=== PATIENT | female | born 1960 | race Caucasian/White ===

== ENCOUNTER 2018-04-21 13:17 | Emergency (ER) | payer BC, SELFPAY ==
[2018-04-21 13:22] VITALS: BP 115/67; PULSE 85; RESP 16; TEMP 36.7; O2SAT 98
--- NOTE | 2018-04-21 14:37 | ED.GENADUL ---
Disposition Clinical Impression: Cold sore Disposition: HOME Condition: Good Instructions: Oral Herpes Simplex Virus Infections (ED) Additional Instructions: For your cold sore you may use Abreva zqzb-jik-ejnaoew topical treatments just take as directed on packaging. You may also use qjmm-cff-yruvdym Tylenol Motrin as needed. If not improving over the next week please follow-up with your primary care provider for reassessment. Referrals: King Gooden, [Primary Care Provider] - 1 week (If not improving over the next week please follow-up with your primary care provider for reassessment.) Medical Decision Making - Medical Decision Making Patient presenting to the emergency department for sore to her left lower lip. Sores consistent with herpes simplex virus. Patient has no oral mucosal involvement no other systemic symptoms. Patient encouraged to use kyje-tgs-ocajoda treatment and to follow-up with her primary care provider if not improving over the next week given that she has already had symptoms for 12 days. After discussion of diagnosis and plan of care with patient patient agreed and stated no further needs, questions, or concerns at this time. History of Present Illness - General Chief complaint: RashLesion Stated complaint: UNKNOWN Time Seen by Provider: 04/21/18 13:44 Source: patient, RN notes reviewed Mode of arrival: ambulatory Limitations: no limitations - History of Present Illness Initial comments: Patient reports approximately 12 days ago she noticed some sores to her left lower lip. She denies that they have spread or traveled anywhere else but they have been burning and aching with sometimes throbbing. She states that she used a couple qlkc-dko-wobubvj ointments/lotions but have not helped her symptoms. Patient denies any fever chills, other rash lesions or bumps on her body or within her mouth. Denies any swollen lymph nodes. Onset/Timin -: days(s) Location: mouth Severity scale (1-10): 3 Quality: burning Consistency: constant Improves with: none Worsens with: none Associated Symptoms: denies other symptoms Treatments Prior to Arrival: other (Ksau-gai-rjwnasf ointments and lotions) - Related Data Unknown [No Known Home Meds] 10/22/17 Unknown [No Known Home Meds] 04/21/18 Allergies Allergy/AdvReac Type Severity Reaction Status Date / Time phenazopyridine Allergy Intermediate HIVES Unverified 10/22/17 11:19 [Phenazopyridine] sulfamerazine [Sulfamerazine] Allergy Intermediate HIVES Unverified 10/22/17 11:19 norfloxacin Allergy Unknown unknown Unverified 10/22/17 11:19 peanut AdvReac Unverified 10/22/17 11:19 pork derived (porcine) AdvReac Unverified 10/22/17 11:19 Review of Systems Constitutional: denies: chills, fever ENT: as per HPI. denies: ear pain, throat pain Respiratory: denies: cough Gastrointestinal: denies: abdominal pain Musculoskeletal: denies: joint swelling Skin: as per HPI, rash Past Medical History - Past Medical History Medical history: no medical history Surgical history: non-contributory - Social History Smoking status: never smoker Alcohol use: none Drug use: none Living Situation: lives with family General Exam - General Limitations: no limitations General appearance: alert, in no apparent distress - Head Head exam: Present: atraumatic - ENT ENT exam: Present: normal orophraynx, mucous membranes moist, other (Patient does have on left lower lip mildly erythematous lesion that is slightly papular and approximately 3 mm in diameter with 2 small vesicles to the medial aspect.) - Neck Neck exam: Present: normal inspection - Respiratory Respiratory exam: Absent: respiratory distress, wheezes, stridor - Neurological Exam Neurological exam: Present: alert, oriented X3. Absent: altered Course Vital Signs - 24 hr 04/21/18 13:22 Temperature 36.7 C Pulse 85 Respiratory 16 Rate Blood Pressure 115/67 Pulse Oximetry 98
--- NOTE | 2018-04-21 14:40 | ED.GENADUL_ITS ---
Disposition Clinical Impression: Cold sore Disposition: HOME Condition: Good Instructions: Oral Herpes Simplex Virus Infections (ED) Additional Instructions: For your cold sore you may use Abreva kuvk-mfm-vfydcrm topical treatments just take as directed on packaging. You may also use nhcq-vvs-xihrbvc Tylenol Motrin as needed. If not improving over the next week please follow-up with your primary care provider for reassessment. Referrals: King Gooden, [Primary Care Provider] - 1 week (If not improving over the next week please follow-up with your primary care provider for reassessment. ) Medical Decision Making - Medical Decision Making Patient presenting to the emergency department for sore to her left lower lip. Sores consistent with herpes simplex virus. Patient has no oral mucosal involvement no other systemic symptoms. Patient encouraged to use over-the- counter treatment and to follow-up with her primary care provider if not improving over the next week given that she has already had symptoms for 12 days. After discussion of diagnosis and plan of care with patient patient agreed and stated no further needs, questions, or concerns at this time. History of Present Illness - General Chief complaint: RashLesion Stated complaint: UNKNOWN Time Seen by Provider: 04/21/18 13:44 Source: patient, RN notes reviewed Mode of arrival: ambulatory Limitations: no limitations - History of Present Illness Initial comments: Patient reports approximately 12 days ago she noticed some sores to her left lower lip. She denies that they have spread or traveled anywhere else but they have been burning and aching with sometimes throbbing. She states that she used a couple xziq-jlp-abnlffm ointments/lotions but have not helped her symptoms. Patient denies any fever chills, other rash lesions or bumps on her body or within her mouth. Denies any swollen lymph nodes. Onset/Timin -: days(s) Location: mouth Severity scale (1-10): 3 Quality: burning Consistency: constant Improves with: none Worsens with: none Associated Symptoms: denies other symptoms Treatments Prior to Arrival: other (Zqud-sab-jvgpdub ointments and lotions) - Related Data Unknown [No Known Home Meds] 10/22/17 Unknown [No Known Home Meds] 04/21/18 Allergies Allergy/AdvReac Type Severity Reaction Status Date / Time phenazopyridine Allergy Intermediate HIVES Unverified 10/22/17 11:19 [Phenazopyridine] sulfamerazine [Sulfamerazine] Allergy Intermediate HIVES Unverified 10/22/17 11: 19 norfloxacin Allergy Unknown unknown Unverified 10/22/17 11:19 peanut AdvReac Unverified 10/22/17 11:19 pork derived (porcine) AdvReac Unverified 10/22/17 11:19 Review of Systems Constitutional: denies: chills, fever ENT: as per HPI. denies: ear pain, throat pain Respiratory: denies: cough Gastrointestinal: denies: abdominal pain Musculoskeletal: denies: joint swelling Skin: as per HPI, rash Past Medical History - Past Medical History Medical history: no medical history Surgical history: non-contributory - Social History Smoking status: never smoker Alcohol use: none Drug use: none Living Situation: lives with family General Exam - General Limitations: no limitations General appearance: alert, in no apparent distress - Head Head exam: Present: atraumatic - ENT ENT exam: Present: normal orophraynx, mucous membranes moist, other (Patient does have on left lower lip mildly erythematous lesion that is slightly papular and approximately 3 mm in diameter with 2 small vesicles to the medial aspect.) - Neck Neck exam: Present: normal inspection - Respiratory Respiratory exam: Absent: respiratory distress, wheezes, stridor - Neurological Exam Neurological exam: Present: alert, oriented X3. Absent: altered Course Vital Signs - 24 hr 04/21/18 13:22 Temperature 36.7 C Pulse 85 Respiratory 16 Rate Blood Pressure 115/67 Pulse Oximetry 98
== END 2018-04-21 14:46 | disposition home or self-care (01) ==
PROVIDERS: Emergency Provider Physician Assistant; PCP Emergency Medicine
DX: B00.89 Other herpesviral infection (principal)
CPT/HCPCS: 99282

== ENCOUNTER 2018-06-10 02:03 | Outpatient (CLI) | payer BC, SELFPAY ==
[2018-06-10 11:43] LABS: Anion Gap 7.1 mmol/L (3-11); BUN 17 mg/dL (7-18); CO2 28.9 mmol/L (21.0-32.0); CREATININE 0.66 mg/dL (0.55-1.02); Calcium 8.8 mg/dL (8.5-10.1); Chloride 103 mmol/L (98-107); Cholesterol 219 mg/dL (50-200); Glucose 98 mg/dL (70-100); HDL Cholesterol 55 mg/dL (40-60); LDL CHOLESTEROL 139 mg/dL (<100); Potassium 4.3 mmol/L (3.5-5.1); Sodium 139 mmol/L (136-145); Triglyceride 176 mg/dL (30-150)
== END 2018-06-10 02:23 ==
PROVIDERS: PCP Nurse Practitioner Family; Visit Provider Nurse Practitioner Family
DX: Z00.00 Encounter for general adult medical examination without abnormal findings (principal); E78.5 Hyperlipidemia, unspecified
CPT/HCPCS: 80048; 80061; 83721

== ENCOUNTER 2018-07-28 00:48 | Outpatient (CLI) | payer BC, SELFPAY ==
--- NOTE | 2018-07-28 09:29 | DI.COMBO_ITS ---
SYMPTOM/DIAGNOSIS: LUMP OF RIGHT BREAST N63.10, MAMMOGRAM: Views of the mammogram obtained for questioned palpable abnormality of the right breast laterally. There is a 6 mm in diameter laterally located, fairly well-circumscribed but not entirely well-defined intramammary mass. Please see accompanying ultrasound report. ULTRASOUND RIGHT BREAST: There is a 3.5 x 4.0 x 3.0 mm area of nodularity with a somewhat indistinct margin. Given the appearance of this lesion on the mammograms and the ultrasound characteristics the possibility of a small malignancy would certainly have to be considered. Further assessment with a biopsy is recommended Category 4, breast density category C. Dr. Caicedo was informed. [facility] ASSESSMENT OF FINDINGS: Suspicious. Biopsy should be considered. Category 4. Patient will receive a letter notifying them of these results. Bi-RADS category C. The breasts are heterogeneously dense, which may obscure small masses.
== END 2018-07-28 01:08 ==
PROVIDERS: PCP Nurse Practitioner Family; Visit Provider Nurse Practitioner Family
DX: N63.10 Unspecified lump in the right breast, unspecified quadrant (principal); R92.8 Other abnormal and inconclusive findings on diagnostic imaging of breast
CPT/HCPCS: 76642; 77061; 77065; G0279

== ENCOUNTER 2019-05-03 08:56 | Outpatient (CLI) | payer BC, SELFPAY ==
[2019-05-03 11:04] LABS: ALT 25 U/L (14-59); AST 16 U/L (15-37); Albumin 4.2 g/dL (3.4-5.0); Alkaline Phosphatase 130 U/L (46-116); Anion Gap 10.1 mmol/L (3-11); BUN 19 mg/dL (7-18); Bilirubin, Total 0.3 mg/dL (0.2-1.0); CO2 28.9 mmol/L (21.0-32.0); CREATININE 0.82 mg/dL (0.55-1.02); Calcium 9.4 mg/dL (8.5-10.1); Calculated LDL 170 mg/dL; Chloride 103 mmol/L (98-107); Cholesterol 254 mg/dL (50-200); Glucose 100 mg/dL (70-100); HDL Cholesterol 60 mg/dL (40-60); Potassium 4.5 mmol/L (3.5-5.1); Sodium 142 mmol/L (136-145); Total Protein 7.7 g/dL (6.4-8.2); Triglyceride 122 mg/dL (30-150)
[2019-05-03 14:02] LABS: FREE T4 0.83 ng/dL (0.76-1.46); TSH 1.92 uIU/mL (0.36-3.74)
== END 2019-05-03 09:16 ==
PROVIDERS: PCP Nurse Practitioner Family; Visit Provider Nurse Practitioner Family
DX: R00.2 Palpitations (principal); E78.5 Hyperlipidemia, unspecified
CPT/HCPCS: 36415; 80053; 80061; 83721; 83036; 83735; 84439; 84443

== ENCOUNTER 2019-05-12 02:00 | Outpatient (CLI) | payer BC, SELFPAY ==
--- NOTE | 2019-05-17 09:38 | HOLTER_ITS ---
DATE OF DICTATION: May 17, 2019 STUDY INDICATION: Palpitations. REQUESTING PROVIDER: Not available. FINDINGS: The patient was monitored for 1 day and 22 hours. Average heart rate 84 bpm, range 51 to 139 bpm. 0.1% PVC's, no VT. 11 PAC's. One 5-beat atrial run, maximum heart rate of 131 bpm. No pauses greater than 3 seconds. No high degree heart block. Five patient events. One event correlated with PVC's. All other events did not correlate with arrhythmias. FINAL INTERPRETATION: Rare ventricular and supraventricular ectopy, at times symptomatic.
== END 2019-05-12 02:20 ==
PROVIDERS: PCP Nurse Practitioner Family; Visit Provider Nurse Practitioner Family
DX: R00.2 Palpitations (principal); I49.1 Atrial premature depolarization; I49.3 Ventricular premature depolarization
CPT/HCPCS: 93225

== ENCOUNTER 2019-05-14 09:19 | Outpatient (CLI) | payer BC, SELFPAY | END 2019-05-14 09:39 | PROVIDERS: PCP Nurse Practitioner Family; Visit Provider Nurse Practitioner Family | DX: R00.2 Palpitations (principal); I49.1 Atrial premature depolarization; I49.3 Ventricular premature depolarization | CPT/HCPCS: 93226 ==

== ENCOUNTER 2019-06-09 01:13 | Outpatient (CLI) | payer MEDICAID, SELFPAY ==
--- NOTE | 2019-06-09 08:32 | DI.RAD_ITS ---
EXAM: RF BARIUM SWALLOW UGI CLINICAL HISTORY: swallowing difficulty and burning in the esophagus, GERD, K21.9 TECHNIQUE: 2D and realtime digital imaging was performed. CONTRAST MATERIAL: Oral water soluble contrast was administered. COMPARISON: No exams were available for comparison FINDINGS: Initial plain film of the chest reveals normal stool and air pattern. No abnormal calcifications are seen. Esophagus: The esophagus is patent with no evidence for erosions, fold thickening, strictures, or ma sses. With regards to the motility, there is a normal primary stripping wave. No tertiary contraction s were noted. There is a small hiatal hernia. There was mild gastroesophageal reflux present. Stomach and proximal duodenum: No erosions, fold thickening, strictures, or masses are identified. T here is no evidence of gastric outlet obstruction. IMPRESSION: Small hiatal hernia. Mild gastroesophageal reflux. FLUORO TIME: 28 seconds
[2019-06-09] MEDS: Barium Sulfate 60% W/V 355 ML BTL 160 ML PO (09:58)
== END 2019-06-09 01:33 ==
PROVIDERS: PCP Nurse Practitioner Family
DX: K21.9 Gastro-esophageal reflux disease without esophagitis (principal); R13.10 Dysphagia, unspecified; K44.9 Diaphragmatic hernia without obstruction or gangrene
CPT/HCPCS: 74220; 74247; J3490

== ENCOUNTER 2019-06-30 07:00 | Outpatient (CLI) | payer MEDICAID, SELFPAY ==
[2019-06-30 11:24] LABS: HCT 41.1 % (36.0-46.0); HGB 14.2 g/dL (12.0-15.5); Mean Corp. HGB Concentration 34.5 g/dL (32.0-36.0); Mean Corpuscular Volume 83.9 fL (80-95); Platelet Count 260 x1000/uL (130-400); RBC Distribution Width 12.1 % (11.7-14.6); White Blood Cell Count 6.24 k/cumm (4.4-10.8)
[2019-06-30 11:58] LABS: ALT 25 U/L (14-59); AST 14 U/L (15-37); Albumin 4.1 g/dL (3.4-5.0); Alkaline Phosphatase 128 U/L (46-116); Anion Gap 10.2 mmol/L (3-11); BUN 15 mg/dL (7-18); Bilirubin, Total 0.3 mg/dL (0.2-1.0); C-Reactive Protein 0.39 mg/dL (0.0-0.3); CO2 27.8 mmol/L (21.0-32.0); CREATININE 0.63 mg/dL (0.55-1.02); Calcium 9.3 mg/dL (8.5-10.1); Chloride 103 mmol/L (98-107); Glucose 90 mg/dL (70-100); Potassium 4.3 mmol/L (3.5-5.1); Sodium 141 mmol/L (136-145); Total Protein 7.4 g/dL (6.4-8.2)
[2019-06-30 12:39] LABS: ESR 10 mm/hr (0-30)
[2019-06-30 14:16] LABS: GGT 27 U/L (5-55)
[2019-07-01 11:47] LABS: Lyme Ab w Rflx to Lyme Confirm Negative
[2019-07-01 12:09] LABS: Cyclic Citrullinated Peptide <2.5 U/mL (<5.0)
== END 2019-06-30 07:20 ==
PROVIDERS: PCP Nurse Practitioner Family; Visit Provider Emergency Medicine
DX: M25.50 Pain in unspecified joint (principal); R89.9 Unspecified abnormal finding in specimens from other organs, systems and tissues
CPT/HCPCS: 36415; 80053; 85027; 85652; 86200; 82977; 86140; 86618

== ENCOUNTER 2019-08-18 01:02 | Outpatient (CLI) | payer MEDICAID, SELFPAY ==
--- NOTE | 2019-08-18 15:21 | DI.CT_ITS ---
EXAM: CT CHEST W CLINICAL HISTORY: NECK/CHEST PAIN R13.10 DYSPHAGIA TECHNIQUE: Post IV contrast COMPARISON: RF BARIUM SWALLOW UGI from 06/09/2019 FINDINGS: Heart size is normal. The aorta and pulmonary arteries are normal in diameter. There is mild calcifi cation at the aortic arch. There are no pleural or pericardial effusions or evidence of adenopathy. N o esophageal wall thickening is visible. Stomach is not abnormally distended. Minimal linear atelecta sis or scarring at the lingula. No infiltrates or pulmonary nodules are seen. The trachea and bronchi are unremarkable. There are no significant bony abnormalities. The visualized portions of the upper abdomen are unremarkable. IMPRESSION: No acute abnormality.
--- NOTE | 2019-08-18 15:22 | DI.CT_ITS ---
EXAM: CT NECK W CLINICAL HISTORY: DYSPHAGIA R13.10 TECHNIQUE: Post IV contrast COMPARISON: No exams were available for comparison FINDINGS: Scoliosis is noted in the cervical spine. There are degenerative disc changes at C6. The parotid, submandibular and thyroid glands appear normal. The visualized portions of the sinuses and mastoid a ir cells appear clear. There is no vascular occlusion or significant stenosis. There is no airway n arrowing. The adenoids and tonsils are not enlarged. IMPRESSION: No acute abnormality.
[2019-08-18] MEDS: Omnipaque 350 MG/ML 100 ML BTL IJ (16:00)
== END 2019-08-18 01:22 ==
PROVIDERS: PCP Nurse Practitioner Family; Visit Provider Emergency Medicine
DX: R13.10 Dysphagia, unspecified (principal); M41.22 Other idiopathic scoliosis, cervical region; M50.322 Other cervical disc degeneration at C5-C6 level; M54.2 Cervicalgia
CPT/HCPCS: 70491; 71260; J3490

== ENCOUNTER 2020-09-04 10:26 | Emergency (ER) | payer MEDICAID, SELFPAY ==
[2020-09-04 10:51] VITALS: BP 120/74; PULSE 101; RESP 20; TEMP 36.8; O2SAT 98
--- NOTE | 2020-09-04 11:24 | W.ED.GENAD ---
Discharge Plan Disposition Patient Disposition: HOME Condition: Stable Discharge Details Clinical Impression: Cough Primary Care Provider: Tere Chacon ED Provider: Fabiola Oswald Home Meds and New Rx's Prescriptions: No Action No Known Home Meds RF: 0 Discharge Instructions Instructions: Acute Cough (ED), Instructions for Self Monitoring Oxygen Saturation Additional Instructions: Please return immediately to the emergency department if you develop any new or worsening symptoms, if your condition does not improve as expected, or if you become otherwise concerned. It is extremely important that you call soon as possible to make an appointment to be seen in follow-up for this visit by your primary care doctor. Stand Alone Forms: PENDING COVID-19 TESTING Referrals: Tere Chacon NP [Primary Care Provider] - Discharge Data Discharge Date/Time-TO BE ENTERED AT DEPARTURE: 09/04/20 12:39 Medical Decision Making Jennifer Nguyen is a 60-year-old woman who presented to the emergency department with cough, generalized body aches, headache after traveling to [place] visiting her son who then tested positive for Covid. On exam patient is well and nontoxic-appearing. O2 sat on room air is 98%. Patient is no other tachycardic as compared to heart rate 101 in triage. Symptoms consistent with Covid versus other viral pneumonia versus bacterial pneumonia (less likely) versus other. Exam/history at this time is not consistent with meningitis, sepsis, acute coronary syndrome, pulmonary embolism. Plan for Covid swab, flu swab, chest x-ray. Chest x-ray negative for acute process, flu swab negative, Covid test is pending as send out to [facility]. I have a strong suspicion for Covid positivity in this patient based on her clinical presentation and history, which I discussed with her. I discussed that she should isolate at home until she has been symptom-free for at least 72 hours. Patient was given pulse oximeter with teaching for use and instructions to return should oxygen saturation drop below 90%. I had a lengthy discussion with Patient regarding return to emergency department precautions, home care, and importance of outpatient follow-up. Pt verbalizes understanding of the plan and is amenable. Patient discharged to home with clear plan for outpatient follow-up. All questions were answered. Patient is not a candidate for monoclonal antibody infusion at this time given institutional policy. Disposition decision was made weighing the risks and benefits of hospitalization versus outpatient treatment, the risk for further decompensation, and the patient's wishes. Medical Records Medical records reviewed: Yes I reviewed the patient's medical records. Imaging Data Radiologic Study: Attestation: I personally reviewed and interpreted this imaging study as follows: Radiologist's impression: EXAM: XR PORTABLE CHEST AP CLINICAL HISTORY: Cough, PUI. TECHNIQUE: 2D digital imaging was performed. COMPARISON: CR,RF RF BARIUM SWALLOW UGI from 06/09/2019 FINDINGS: Heart size is normal. The mediastinum is not widened. Lungs are clear with no infiltrates nor pleural effusions. No pulmonary edema. Incidentally noted is calcification in the aortic arch in this 60-year-old patient. IMPRESSION: No acute pulmonary findings. The aortic arch is calcified in this 60-year-old patient indicating atherosclerotic involvement. Heart size is normal. Lab Data Lab results reviewed: Yes I reviewed the patient's lab results. HPI General Mode of arrival: ambulatory. Date/Time Provider Initiated Documentation: 09/04/20 10:28. Limitations to Documentation: no limitations. Information obtained by: patient, RN notes reviewed and old records reviewed. HPI Narrative: Jennifer Nguyen is a 60-year-old woman with a history of hyperlipidemia presenting to the emergency department with cough, body aches. Patient reports that she traveled to [place] with her to visit her son 08/31. Patient's son then tested positive for Covid 09/01, and she and her returned to [place] that day. Patient reports that yesterday she developed dry cough, headache, and generalized body aches. She is unsure whether she has had fever. She denies shortness of breath, vomiting, diarrhea, numbness, weakness, rash. Patient reports that she has been eating and drinking as usual. She reports that she came to the emergency department because she coughed all night, which was uncomfortable for her. Patient's is also being seen in the emergency department concurrently for similar symptoms. Patient reports headache as mild to moderate, gradual onset, not the worst of her life. Related Data Home Medications Medication Instructions Recorded Confirmed Unknown [No Known Home Meds] 09/04/20 09/14/20 Allergies Allergy/AdvReac Type Severity Reaction Status Date / Time phenazopyridine Allergy Intermediate HIVES Verified 09/14/20 08:35 [Phenazopyridine] sulfamerazine [Sulfamerazine] Allergy Intermediate HIVES Verified 09/14/20 08:35 norfloxacin Allergy Unknown unknown Verified 09/14/20 08:35 peanut AdvReac Verified 09/14/20 08:35 pork derived (porcine) AdvReac Verified 09/14/20 08:35 General Stated Complaint: RespSymp SETH: 4 Review of Systems Narrative: Constitutional: denies fevers Eyes: denies eye pain ENT: denies ear pain, dental pain, sore throat Cardiovascular: denies chest pain, edema Respiratory: denies SOB, reports cough GI: denies abdominal pain, vomiting, diarrhea : denies flank pain MSK: denies back pain, neck pain,, reports generalized arthralgias/myalgias Skin: denies rash Neuro: denies numbness, weakness, reports headache [facility] Medical History (Updated 09/14/20 @ 11:00 by Prabhjot Clifton MD) Ductal carcinoma in situ (DCIS) of right breast (~2002) DCIS, high grade, grade 3 comedo type, ER/AR positive in summer 2002 s/p lumpectomy, radiation and 5yrs of tamoxifen at [facility] GERD (gastroesophageal reflux disease) Hyperlipidemia Prediabetes Surgical History Hx of section (~1980) S/P abdominoplasty S/P cataract surgery (~2012) S/P lumpectomy, right breast (~2002) S/P nasal septoplasty (05/11/14) S/P STACIE-BSO (total abdominal hysterectomy and bilateral salpingo-oophorectomy) (~1991) Family History Mother No problems noted. Father Hypertension Sister No problems noted. Sister Type 2 diabetes mellitus Colon cancer Sister No problems noted. Brother Hypertension Brother Substance abuse Alcohol abuse Son Crohns disease Daughter Crohns disease Maternal Grandfather No problems noted. Maternal Grandmother Heart disease Paternal Grandfather No problems noted. Paternal Grandmother No problems noted. Social History Smoking/Tobacco Use Status: Never Smoking risk assessment performed?: Yes Alcohol Intake: never Drug use: Never Substance use type: does not use Do you feel safe in your relationship?: Yes Female Reproductive History Menstrual Menopause type: surgical History History 2 Para 2 Hx # Term Pregnancies Multiple births Hx # Pregnancies Ectopic pregnancies AB induced Hx Number of Living Children 2 AB spontaneous Exam Narrative Exam Narrative: Constitutional: well and [id number]-czvxbtbbg, pleasant, conversing normally HENT: head atraumatic/normocephalic/normal inspection, mucous membranes moist Eyes: conjunctiva normal, sclera normal, pupils 3mm b/l Neck: no stridor, normal painless ROM, trachea midline, supple, no meningismus Chest: normal inspection Resp: normal work of breathing, LCTAB Cardio: normal rate, normal rhythm, no murmur appreciated Back: normal inspection, no rash Skin: warm, dry, normal color, no rash Neuro: alert, not altered, grossly non-focal, normal tone Ext: no edema, no posterior calf tenderness to palpation Psych: normal mood, normal affect, normal behavior Course Vital Signs Vital signs: Vital Signs Temperature 36.8 C 09/04/20 10:51 Pulse 101 H 09/04/20 10:51 Respiratory Rate 20 09/04/20 10:51 Blood Pressure 120/74 09/04/20 10:51 Pulse Oximetry 98 09/04/20 10:51 Temperature 36.8 C 09/04/20 10:51 Temperature Source Skin 09/04/20 10:51 Pulse 101 H 09/04/20 10:51 Respiratory Rate 20 09/04/20 10:51 Respiratory Effort Non-Labored 09/04/20 10:55 Respiratory Depth Normal 09/04/20 10:55 Blood Pressure 120/74 09/04/20 10:51 Blood Pressure Position Sitting 09/04/20 10:51 Pulse Oximetry 98 09/04/20 10:51 Oxygen Delivery Method Room Air 09/04/20 10:51 Oxygen Flow Rate 0 09/04/20 10:51 Pain Level 7 09/04/20 10:51 Comment 09/04/20 10:51 Lab/Test Results Lab/Test Results: 09/04/20 11:16 Nasopharynx Influenza Types A,B Antigen - Pending
--- NOTE | 2020-09-04 11:46 | DI.RAD_ITS ---
EXAM: XR PORTABLE CHEST AP CLINICAL HISTORY: Cough, PUI. TECHNIQUE: 2D digital imaging was performed. COMPARISON: CR,RF RF BARIUM SWALLOW UGI from 06/09/2019 FINDINGS: Heart size is normal. The mediastinum is not widened. Lungs are clear with no infiltrates nor pleur al effusions. No pulmonary edema. Incidentally noted is calcification in the aortic arch in this 60 -year-old patient. IMPRESSION: No acute pulmonary findings. The aortic arch is calcified in this 60-year-old patient indicating ath erosclerotic involvement. Heart size is normal. DATA REPOSITORY: RADIATION DOSE DELIVERED:
[2020-09-04 12:38] VITALS: PULSE 74; O2SAT 98
[2020-09-05 14:21] LABS: COVID-19 RT-PCR UVMMC Result Positive (Negative)
--- NOTE | 2020-09-05 14:52 | NUR.NOTE ---
Nursing Note: Pt called via telephone and notified of positive covid-19 results and negative flu results. Pt and had questions regarding medications that could be prescribed for them for their positive covid result- advised to speak with primary care physician.
== END 2020-09-04 12:39 | disposition home or self-care (01) ==
PROVIDERS: Emergency Provider Student in an Organized Health Care Education/Training Program; PCP Nurse Practitioner Family
DX: U07.1 COVID-19 (principal); R05 Cough; M79.10 Myalgia, unspecified site; R51.9 Headache, unspecified
CPT/HCPCS: 87449; 99283; U0003; 71045

== ENCOUNTER 2020-09-06 09:36 | Outpatient (CLI) | payer MEDICAID, SELFPAY ==
[2020-09-06 12:29] VITALS: BP 111/74; PULSE 79; RESP 16; TEMP 37.4; O2SAT 97
[2020-09-06] MEDS: Normal Saline 500 ML 30 ML IV (12:35)
[2020-09-06] MEDS: Normal Saline Flush 10 ML SYR IVP (12:36)
[2020-09-06 12:53] VITALS: BP 126/80; PULSE 74; RESP 18; TEMP 36.8; O2SAT 95
[2020-09-06 13:26] VITALS: BP 116/78; PULSE 68; RESP 16; TEMP 36.8; O2SAT 95
[2020-09-06 13:54] VITALS: BP 122/75; PULSE 64; RESP 16; TEMP 36.7; O2SAT 94
[2020-09-06 14:24] VITALS: BP 124/75; PULSE 61; RESP 16; TEMP 36.6; O2SAT 97
[2020-09-06 14:45] VITALS: BP 125/84; PULSE 64; RESP 16; TEMP 36.6; O2SAT 96
== END 2020-09-06 09:56 ==
PROVIDERS: PCP Nurse Practitioner Family; Visit Provider Family Medicine
DX: U07.1 COVID-19 (principal)
CPT/HCPCS: 96365

== ENCOUNTER 2020-09-14 08:23 | Emergency (ER) | payer MEDICAID, SELFPAY ==
[2020-09-14] VITALS (31 sets, daily range): BP systolic 91–144; BP diastolic 69–95; PULSE 80–119; RESP 14–20; TEMP 36.6; O2SAT 97–100
--- NOTE | 2020-09-14 08:45 | RT.EKG_ITS ---
APPROVED REPORT Exam: Resting ECG Patient Location: E HR:100 bpm ECG Measurements Heart Rate 100 AXIS MI 136 P 78 QRSd 82 QRS 85 QT 343 T 55 QTc 444 Conclusion Sinus tachycardia.. Probable left atrial enlargement.
--- NOTE | 2020-09-14 09:00 | W.ED.GENAD ---
Discharge Plan Disposition Patient Disposition: HOME Condition: Improving Discharge Details Chief Complaint: RespSymp Clinical Impression: COVID-19 Primary Care Provider: Tere Chacno ED Provider: Prabhjot Clifton Home Meds and New Rx's Prescriptions: No Action No Known Home Meds RF: 0 Discharge Instructions Instructions: Viral Syndrome (ED) Additional Instructions: May continue once daily home monitoring of oxygen. Remember that extremities should be warmed prior to measurement. Do not except the first number that appears on the screen that continue to observe for readings over 30 to 60 seconds. Return to the emergency department if your resting oxygenation drops below 90% on separate measurements 10 minutes apart. Tylenol and/or ibuprofen as needed for pain, aches, fever. Small, frequent sips of fluids so that you maintain good hydration. Return to the ER for any acute concern. Please follow-up with your regular doctor if not improved in 5 to 7 days time. Medical Decision Making 60-year-old female presents from home with her . They developed Covid symptoms and had a positive COVID-19 test September 04. They were given home oxygen monitoring and patient's oxygen has been within normal limits, her has diminished. They both present for evaluation today. She complains primarily of mild conjunctivitis and headache with poor appetite. The patient received Bamlanivimab infusion last week. Patient's vital signs are unremarkable, she is anxious with a pulse approximately 105. She is oxygenating 97% on room air and her lungs are clear to auscultation. Patient given a fluid bolus, Tylenol and Toradol, screening labs including lactic acid obtained and repeat chest x-ray ordered. White blood cell count is 8, hematocrit 45, platelets 284. Chemistries unremarkable, note of glucose 203, normal LFTs. Lactic acid 2.4. Chest x-ray: No acute disease Following 2 L normal saline and parenteral analgesic/antipyretic. Patient's lactate improved to 1.3. She felt subjectively improved and better. We will discharged home, she may continue to monitor home oxygen with the previously dispensed oximeter. Discussed with her home management and indications to return for reevaluation. Lab Data Lab results reviewed: Yes I reviewed the patient's lab results. Labs: Laboratory Results - last 24 hr 09/14/20 09/14/20 09/14/20 08:55 08:55 08:55 WBC 8.58 RBC 5.26 H Hgb 15.2 Hct 45.0 MCV 85.6 MCH 28.9 MCHC 33.8 RDW 11.6 L Plt Count 284 MPV 10.2 Immature Gran % 0.6 Neutrophils % 78.1 Lymphocytes % 15.9 Monocytes % 5.0 Eosinophils % 0.1 Basophils % 0.3 Nucleated RBC % 0 Absolute Neutrophils 6.70 Absolute Lymphocytes 1.36 Absolute Monocytes 0.43 Absolute Eosinophils 0.01 Absolute Basophils 0.03 VBG Lactate 2.4 H* Sodium 137 Potassium 4.0 Chloride 101 Carbon Dioxide 26.5 Anion Gap 9.5 BUN 12 Creatinine 0.88 Estimated GFR/1.73 m2 >= 60.00 Glucose 203 H Calcium 9.2 Total Bilirubin 0.4 AST 20 ALT 44 Alkaline Phosphatase 125 H Total Protein 8.1 Albumin 4.2 HPI General Mode of arrival: ambulatory. Date/Time Provider Initiated Documentation: 09/14/20 08:25. Limitations to Documentation: no limitations. Information obtained by: patient. History of Present Illness 60 year old F presents to the emergency department with the chief complaint of Thighs hurt, cough, headache. Last Tylenol 2 days ago. +PO, described as moderate, Quality is described as dull and constant, and is localized to the head. Patient started experiencing this day(s) and it has been intermittent. No relieving factors improve symptom(s), No exacerbating factors reported . Patient notes cough, headaches, loss of appetite, malaise and weakness; denies nausea/vomiting and shortness of breath. Patient did receive the following treatments prior to arrival, none Related Data Home Medications Medication Instructions Recorded Confirmed Unknown [No Known Home Meds] 09/04/20 09/14/20 Allergies Allergy/AdvReac Type Severity Reaction Status Date / Time phenazopyridine Allergy Intermediate HIVES Verified 09/14/20 08:35 [Phenazopyridine] sulfamerazine [Sulfamerazine] Allergy Intermediate HIVES Verified 09/14/20 08:35 norfloxacin Allergy Unknown unknown Verified 09/14/20 08:35 peanut AdvReac Verified 09/14/20 08:35 pork derived (porcine) AdvReac Verified 09/14/20 08:35 General Stated Complaint: RespSymp SETH: 4 Review of Systems Narrative: Decreased appetite. Able to eat and drink. No significant shortness of breath. Mild cough. Complains of mild burning of eyes and headache. Last Tylenol was 2 days ago. Her is positive with Covid as well. 8 systems reviewed and otherwise negative. [facility] Medical History (Updated 09/14/20 @ 11:00 by Prabhjot Clifton MD) Ductal carcinoma in situ (DCIS) of right breast (~2002) DCIS, high grade, grade 3 comedo type, ER/CT positive in summer 2002 s/p lumpectomy, radiation and 5yrs of tamoxifen at [facility] GERD (gastroesophageal reflux disease) Hyperlipidemia Prediabetes Surgical History Hx of section (~1980) S/P abdominoplasty S/P cataract surgery (~2012) S/P lumpectomy, right breast (~2002) S/P nasal septoplasty (05/11/14) S/P STACIE-BSO (total abdominal hysterectomy and bilateral salpingo-oophorectomy) (~1991) Family History Mother No problems noted. Father Hypertension Sister No problems noted. Sister Type 2 diabetes mellitus Colon cancer Sister No problems noted. Brother Hypertension Brother Substance abuse Alcohol abuse Son Crohns disease Daughter Crohns disease Maternal Grandfather No problems noted. Maternal Grandmother Heart disease Paternal Grandfather No problems noted. Paternal Grandmother No problems noted. Social History Smoking/Tobacco Use Status: Never Smoking risk assessment performed?: Yes Alcohol Intake: never Drug use: Never Substance use type: does not use Do you feel safe in your relationship?: Yes Female Reproductive History Menstrual Menopause type: surgical History History 2 Para 2 Hx # Term Pregnancies Multiple births Hx # Pregnancies Ectopic pregnancies AB induced Hx Number of Living Children 2 AB spontaneous Exam Narrative Exam Narrative: GEN: awake, alert, oriented 3. Pleasant, well groomed, interactive. HEAD: Normocephalic, atraumatic ENT: Mucous membranes moist, oropharynx unremarkable, External ear exam unremarkable EYES: PERRL, EOMI, mild conjunctival injection bilaterally NECK: Full ROM, no SOLE, no menigismus CHEST/RESP: Nontender, clear to auscultation bilateral, no wheeze/rhonchi/rales CARDIOVASCULAR: Borderline sinus tachycardia with a rate approximately 100, no murmur, rub grant. 2+ Rad pulse bilateral ABDOMEN: Soft, nontender, no mass. +Bowel sounds EXT: Full ROM, no edema, no rash Neuro: Grossly normal neurologic exam, conversant, interactive. Psych: Speech fluent, thoughts congruent, affect anxious Course Vital Signs Vital signs: Vital Signs Temperature 36.6 C 09/14/20 08:31 Pulse 119 H 09/14/20 08:31 Respiratory Rate 20 09/14/20 08:31 Blood Pressure 119/71 09/14/20 08:31 Pulse Oximetry 97 09/14/20 08:31 Temperature 36.6 C 09/14/20 08:31 Temperature Source Skin 09/14/20 08:31 Pulse 119 H 09/14/20 08:31 Respiratory Rate 20 09/14/20 08:31 Respiratory Effort Non-Labored 09/14/20 08:35 Blood Pressure 119/71 09/14/20 08:31 Blood Pressure Position Sitting 09/14/20 08:31 Pulse Oximetry 97 09/14/20 08:31 Oxygen Delivery Method Room Air 09/14/20 08:31 Oxygen Flow Rate 0 09/14/20 08:31 Pain Level 4 09/14/20 08:31
[2020-09-14 09:08] LABS: Abs Immature Grans 0.05 10^3/uL (0.0-0.06); Absolute Basophil Count 0.03 10^3/uL (0.0-0.2); Absolute Eosinophil Count 0.01 10^3/uL (0.0-0.7); Absolute Lymphocyte Count 1.36 10^3/uL (1.2-3.4); Absolute Monocyte Count 0.43 10^3/uL (0.1-0.8); Basophils % 0.3; Eosinophils % 0.1; HGB 15.2 g/dL (11.2-15.7); Immature Grans % 0.6; Lymphocytes % 15.9; MCH 28.9 pg (27.0-33.0); MCHC 33.8 % (32.0-36.0); MCV 85.6 fL (80-95); MPV 10.2 fL (8.0-11.0); Neutrophils % 78.1; Nucleated RBC 0 %; Platelet Count 284 10^3/uL (130-400); RBC 5.26 10^6/uL (3.93-5.22); RDW 11.6 % (11.7-14.6); RDW-SD 36.3 fL; WBC 8.58 10^3/uL (4.4-10.8)
[2020-09-14] MEDS: Normal Saline 1,000 ML 1000 ML IV ×2 (09:09→09:22)
[2020-09-14] MEDS: Acetaminophen 500 MG TAB 1000 MG PO (09:09)
[2020-09-14] MEDS: Ketorolac 15 MG/ML VIAL IVP (09:09)
[2020-09-14 09:11] LABS: Lactate 2.4 mmol/L (0.6-1.4)
[2020-09-14 09:33] LABS: ALT 44 U/L (14-59); AST 20 U/L (15-37); Albumin 4.2 g/dL (3.4-5.0); Alkaline Phosphatase 125 U/L (46-116); Anion Gap 9.5 mmol/L (3-11); BUN 12 mg/dL (7-18); Bilirubin, Total 0.4 mg/dL (0.2-1.0); CO2 26.5 mmol/L (21.0-32.0); CREATININE 0.88 mg/dL (0.55-1.02); Calcium 9.2 mg/dL (8.5-10.1); Chloride 101 mmol/L (98-107); Glucose 203 mg/dL (74-106); Sodium 137 mmol/L (136-145); Total Protein 8.1 g/dL (6.4-8.2)
--- NOTE | 2020-09-14 09:59 | DI.RAD_ITS ---
EXAM: XR PORTABLE CHEST AP CLINICAL HISTORY: Cough, + covid. TECHNIQUE: 2D digital imaging was performed. COMPARISON: CR XR PORTABLE CHEST AP from 09/04/2020 FINDINGS: Heart size is normal. The mediastinum is not widened. Lungs are clear. No infiltrates nor obvious pleural effusions. Chest leads noted. IMPRESSION: No acute pulmonary findings on this single AP portable view of the chest. DATA REPOSITORY: RADIATION DOSE DELIVERED:
[2020-09-14 10:54] LABS: Lactate 1.3 mmol/L (0.6-1.4)
== END 2020-09-14 11:30 | disposition home or self-care (01) ==
PROVIDERS: Emergency Provider Emergency Medicine; PCP Nurse Practitioner Family
DX: U07.1 COVID-19 (principal); R05 Cough; R51.9 Headache, unspecified; R63.0 Anorexia
CPT/HCPCS: 36415; 80053; 93005; 96361; 96374; 99285; 71045; 83605; 85025; 93010; J1885

== ENCOUNTER 2021-06-11 03:36 | Outpatient (CLI) | payer MEDICAID, SELFPAY ==
[2021-06-11 13:21] LABS: Anion Gap 7.7 mmol/L (3-11); BUN 13 mg/dL (7-18); CO2 30.3 mmol/L (21.0-32.0); CREATININE 0.9 mg/dL (0.55-1.02); Calcium 9.5 mg/dL (8.5-10.1); Calculated LDL 172 mg/dL (<100); Chloride 104 mmol/L (98-107); Cholesterol 247 mg/dL (<200); Glucose 108 mg/dL (74-106); HDL Cholesterol 58 mg/dL (40-60); Potassium 4.2 mmol/L (3.5-5.1); Sodium 142 mmol/L (136-145); Triglyceride 88 mg/dL (<150)
[2021-06-11 13:22] LABS: Hemoglobin A1C 5.9 % (<5.7)
== END 2021-06-11 03:37 | disposition home or self-care (01) ==
PROVIDERS: PCP Nurse Practitioner Family; Visit Provider Nurse Practitioner Family
DX: R73.03 Prediabetes (principal)
CPT/HCPCS: 36415; 80048; 80061; 83036

== ENCOUNTER 2021-07-25 02:09 | Outpatient (CLI) | payer MEDICAID, SELFPAY ==
[2021-07-25 13:19] LABS: ALT 29 U/L (14-59); AST 14 U/L (15-37); Albumin 4.2 g/dL (3.4-5.0); Alkaline Phosphatase 123 U/L (46-116); Anion Gap 7.7 mmol/L (3-11); BUN 15 mg/dL (7-18); Bilirubin, Total 0.5 mg/dL (0.2-1.0); CO2 31.3 mmol/L (21.0-32.0); CREATININE 0.8 mg/dL (0.55-1.02); Calcium 9.4 mg/dL (8.5-10.1); Chloride 106 mmol/L (98-107); Glucose 105 mg/dL (74-106); Potassium 4.6 mmol/L (3.5-5.1); Sodium 145 mmol/L (136-145); TSH (W/Ref FT4) 1.26 uIU/mL (0.36-3.74); Total Protein 7.2 g/dL (6.4-8.2)
== END 2021-07-25 02:10 | disposition home or self-care (01) ==
LOC: LOS 02:10
PROVIDERS: PCP Nurse Practitioner Family; Visit Provider Nurse Practitioner Family
DX: F41.1 Generalized anxiety disorder (principal)
CPT/HCPCS: 36415; 80053; 84443

== ENCOUNTER 2021-08-08 00:31 | Outpatient (CLI) | payer MEDICAID, SELFPAY ==
--- NOTE | 2021-08-08 08:00 | DI.US_ITS ---
Exam(s) US SOFT TISSUE HEAD OR NECK EXAM: US SOFT TISSUE HEAD OR NECK CLINICAL HISTORY: foreign body sensation in throat, scan ant neck, r09.89. TECHNIQUE: Ultrasound was performed using standard protocol. COMPARISON: No exams were available for comparison FINDINGS: Sonographic assessment utilizing grayscale and color Doppler imaging was performed and targeted to th e area of clinical concern. There is a 0.6 cm cyst in the left lobe of the thyroid gland. This appears to correspond to the mariella ent's palpable abnormality. The soft tissues in the neck are otherwise unremarkable. Normal lymph n odes are visualized. IMPRESSION: 0.6 cm cyst in the left thyroid gland which appears to correspond to the palpable abnormality. The t hyroid gland was incompletely imaged on this examination. If there is further concern for thyroid di sease, a thyroid ultrasound may be obtained. DATA REPOSITORY:
== END 2021-08-08 00:51 ==
PROVIDERS: PCP Nurse Practitioner Family; Visit Provider Nurse Practitioner Family
DX: R09.89 Other specified symptoms and signs involving the circulatory and respiratory systems (principal); R93.89 Abnormal findings on diagnostic imaging of other specified body structures
CPT/HCPCS: 76536

== ENCOUNTER 2021-08-14 00:34 | Outpatient (CLI) | payer MEDICAID, SELFPAY ==
--- NOTE | 2021-08-14 07:30 | DI.US_ITS ---
Exam(s) US THYROID EXAM: US THYROID CLINICAL HISTORY: Thyroid cyst on neck US,E04.1. TECHNIQUE: Ultrasound thyroid performed using standard protocol. COMPARISON: US US SOFT TISSUE HEAD OR NECK from 08/08/2021 FINDINGS: ISTHMUS: 3 mm RIGHT LOBE: Size: 4.9 x 1.7 x 1.5 cm Echogenicity: Normal. Vascularity: Normal. Nodules: There is a mixed cystic and solid nodule in the midpole measuring 0.7 cm maximally. It is h ypoechoic with punctate echogenic foci. It is consistent with a TIRADS level 4 nodule. Due to its s ize, no follow-up is recommended. LEFT LOBE: Size: 5.1 x 1.3 x 1.4 cm Echogenicity: Normal. Vascularity: Normal. Nodules: There is a 0.7 cm cyst in the midpole. No follow-up is recommended. OTHER FINDINGS: None. IMPRESSION: 0.7 cm cyst in the midpole of the left thyroid gland. DATA REPOSITORY:
== END 2021-08-14 00:54 ==
PROVIDERS: PCP Nurse Practitioner Family; Visit Provider Nurse Practitioner Family
DX: E04.1 Nontoxic single thyroid nodule (principal)
CPT/HCPCS: 76536

== ENCOUNTER 2021-08-20 03:42 | Outpatient (CLI) | payer MEDICAID, SELFPAY ==
[2021-08-20 10:16] LABS: Source Nasal/Nares
[2021-08-20 12:30] LABS: COVID-19 PCR Negative (Negative)
== END 2021-08-20 03:43 | disposition home or self-care (01) ==
PROVIDERS: PCP Nurse Practitioner Family; Visit Provider Surgery
DX: Z20.822 Contact with and (suspected) exposure to COVID-19 (principal); Z01.818 Encounter for other preprocedural examination
CPT/HCPCS: 87635

== ENCOUNTER 2021-08-22 08:14 | Day surgery (SDC) | payer MEDICAID, SELFPAY ==
--- NOTE | 2021-08-22 06:33 | W.COLOREPORT ---
Colonoscopy Report Date of procedure: 08/22/21 Pre-op diagnosis general: Diarrhea Post-op diagnosis procedure note: same Procedure: Colonoscopy with biopsies Surgeon: Maia Bocanegra Anesthesia Type: General:No Airway (Bishop Akhtar CRNA) Estimated blood loss (mL): 3 Pathology: other (Randome biopsies throughout the colon and terminal ileum) Complications: None Disposition: same day Indications: Mrs Nguyen is a pleasant 61-year-old female with a history of diarrhea now for the last 5 to 6 months. She has lost some weight. Over the last few weeks the diarrhea has slowed down and she is now having 2 bowel movements a day which are very soft but not liquid anymore. She denies any melena or hematochezia. She does have a family history of Crohn's and her son and daughter as well as a family history of colon cancer in her sister. Her last colonoscopy was in 2012 and was normal. Due to her weight loss and family history I do feel it is appropriate to do a colonoscopy. Differential includes inflammatory bowel disease, post viral diarrhea and less likely colon cancer. Risks, benefits and complications of the procedure were reviewed with her as well as the prep and she wished to proceed. Risks, benefits and complications have been reviewed. Complications include but are not limited to bleeding, pain, perforation, missed small lesion/polyp, sore throat, aspiration and adverse reaction to the medications. Questions were entertained and answered to their satisfaction and they wished to proceed. No guarantees were given or implied. Proceed with colonoscopy under sedation Prep: Miralax/Dulcolax Procedure Start Time: 09:36 Procedure End Time: 09:54 Retraction Time: 9 minutes Findings: NOrmal looking intestine Procedure Description: After informed consent was obtained the patient was taken to the procedure room and placed in a left decubitous position. Monitors were applied and a time out was done. The patients name, date of , procedure, allergies to medications and metal in their body was reviewed. The patient was then sedated. Once sedated and comfortable a rectal exam was done. External exam was normal. Internal exam revealed a normal sphincter tone and no palpable masses. The scope was then introduced and retro-flexed. No internal hemorrhoids, polyps or masses were identified on retro-flexion. The scope was then advanced to the cecum without difficulty. The ileocecal vlave and appendiceal orifice were identified. The prep was good. The scope was then slowly retracted over 9 minutes back into the rectum. There were no polyps. There was no diverticulosis noted. Randome biopsies of the terminal ileum and colon were done to rule out microscopic colitis. The scope was removed and the patient was woken up and taken back to Same day surgery in stable condition. The patient tolerated the procedure well and there were no immediate complications. Follow up: The patient should follow up in 10 years unless they develop changes in bowel habits or other new gastrointestinal complaints.
--- NOTE | 2021-08-22 06:34 | W.PM.DSUDISC ---
Discharge Plan Disposition Patient Disposition: HOME Condition: Good Discharge Details Reason For Visit: Colonoscopy Attending Provider: Maia Bocanegra Primary Care Provider: Tere Chacon Home Meds and New Rx's Prescriptions: Continued gabapentin 300 mg capsule 300 mg PO QHS RF: 0 calcium carbonate [Tums] 300 mg (750 mg) tablet,chewable 300 mg PO DAILY RF: 0 omeprazole 20 mg capsule,delayed release(DR/EC) 20 mg PO DAILY Qty: 90 RF: 0 calcium carbonate [Tums] 200 mg calcium (500 mg) Tablet,Chewable 200 mg PO BID RF: 0 Discontinued bisacodyl [Dulcolax (bisacodyl)] 5 mg tablet,delayed release (DR/EC) 5 mg PO ONCE Qty: 4 RF: 0 polyethylene glycol 3350 17 gram/dose powder 17 g PO ONCE Qty: 238 RF: 0 Discharge Instructions Additional Instructions: Findings: Normal appearing intestine Follow up: 10 years Please call if you develop: fevers >101.5 Nausea or Vomiting Abdominal pain that is not transient Rectal bleeding that is more then a tbsp A hard abdomen and inability to pass gas DAY SURGERY UNIT POST ENDOSCOPY INSTRUCTIONS Instructions for everyone who is given Anesthesia: For your safety, please do the following for the next 24 Hours: a. Do not drive or operate dangerous equipment b. Do not drink alcohol beverages or use any recreational drugs for the first 24 hours or while taking pain medications. The medications in your body may have a reaction that can be dangerous. c. Do not make any important decisions or sign any important papers 1. Generally there are no restrictions on your activity after a day or so has gone by, but you may feel a bit fatigued for a few days. 2. After you arrive home you may have a light meal and return to a normal diet as you can tolerate it without feeling sick to your stomach. 3. After surgery, you may feel pain or discomfort. This should be only transient, but if it persists please contact your doctor. 4. If there are any questions regarding the findings of your procedure, please feel free to contact your doctor. 6. If you are unable to contact your doctor with a problem, contact the hospital at [phone]. 7. Continue all your regular medications unless directed otherwise. I understand the above instructions and have no questions. Signature of Patient or Responsible Adult Escort Date/Time Name of Responsible Adult Escort Signature of Nurse Date/Time Activity:: Activity as Tolerated Diet:: As Tolerated Discharge Orders Discharge Orders: Discharge Order (Routine); Ordered 08/22/21 Ordered By: Maia Bocanegra
[2021-08-22 08:20] VITALS: BP 118/75; PULSE 89; RESP 18; TEMP 36.9; O2SAT 97
[2021-08-22] MEDS: Lactated Ringers 1,000 ML 80 ML IV (08:46)
--- NOTE | 2021-08-22 08:53 | W.ANESPRE ---
General Info Date of Service Date Performed: 08/22/21 Height: 5 ft 5 in Weight: 66.4 kg Body Mass Index (BMI): 24.3 Surgical Procedure: Operation Date: 08/22/21 09:50 Proposed Procedures Side Surgeon p Colonoscopy Maia Bocanegra MD Meds Allergies and Home Medications Allergies Allergy/AdvReac Type Severity Reaction Status Date / Time phenazopyridine Allergy Intermediate HIVES Verified 08/22/21 07:38 [Phenazopyridine] sulfamerazine [Sulfamerazine] Allergy Intermediate HIVES Verified 08/22/21 07:38 norfloxacin Allergy Unknown unknown Verified 08/22/21 07:38 peanut AdvReac Verified 08/22/21 07:38 pork derived (porcine) AdvReac Verified 08/22/21 07:38 Home Medication Medication Instructions Recorded bisacodyl 5 mg tablet,delayed 5 mg PO ONCE #4 tab 08/14/21 release polyethylene glycol 3350 17 17 g PO ONCE #238 g 08/14/21 gram/dose oral powder calcium carbonate 300 mg (750 mg) 300 mg PO DAILY 08/20/21 chewable tablet gabapentin 300 mg capsule 300 mg PO QHS 08/20/21 omeprazole 20 mg capsule,delayed 20 mg PO DAILY #90 cap 08/20/21 release calcium carbonate [Tums] 200 mg PO BID 08/22/21 Current Visit Medications: Current Medications Generic Name Dose Route Start Last Admin Trade Name Freq PRN Reason Stop Dose Admin Hyoscyamine Sulfate 0.125 mg 08/22/21 06:35 Hyoscyamine 0.125 Mg Sl/Oral/Chew SL DIRECTED PRN Ringer's Solution 1,000 mls @ 80 mls/hr 08/22/21 06:00 08/22/21 08:46 IV 09/20/21 23:59 80 mls/hr INFUSION ALVA Administration IV Miscellaneous Supplies 1 each 08/22/21 06:00 Iv Access IV 09/20/21 23:59 DIRECTED ALVA Ondansetron HCl 4 mg 08/22/21 06:35 Ondansetron 4 Mg/2 Ml Vial IVP Q4H PRN PRN Nausea / Vomiting Sodium Chloride 0 ml 08/22/21 06:00 Normal Saline Flush 10 Ml Syr IV 09/20/21 23:59 PRN PRN Sodium Chloride 0 ml 08/22/21 06:00 Normal Saline 10 Ml Vial IJ 09/20/21 23:59 DIRECTED PRN Sterile Water 0 ml 08/22/21 06:00 Water,Injection,Sterile 10 Ml Vial IJ 09/20/21 23:59 DIRECTED PRN PFSH Active Problems Active Problems: Problem Status Onset Code GERD (gastroesophageal reflux disease) K21.9 Prediabetes R73.03 Generalized anxiety disorder F41.1 Hyperlipidemia E78.5 Diarrhea R19.7 History of right breast cancer ~2002 Z85.3 Medical History Medical History COVID-19 (~08/2020) 08/2020-nasal congestion, cough 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) DCIS, high grade, grade 3 comedo type, ER/VA positive in summer 2002 s/p lumpectomy, radiation and 5yrs of tamoxifen at [facility] Generalized anxiety disorder GERD (gastroesophageal reflux disease) Hyperlipidemia Prediabetes Surgical History Surgical History Hx of section (~1980) S/P abdominoplasty S/P cataract surgery (~2012) S/P lumpectomy, right breast (~2002) S/P nasal septoplasty (05/11/14) S/P STACIE-BSO (total abdominal hysterectomy and bilateral salpingo-oophorectomy) (~1991) Tobacco Smoking/Tobacco Use Status: Never Passive smoking exposure: No Second hand exposure: No Alcohol Alcohol Intake: current Alcohol type: wine Substance Use Substance use: Never Substance use type: does not use Prental History History 2 Para 2 Hx # Term Pregnancies Multiple births Hx # Pregnancies Ectopic pregnancies AB induced Hx Number of Living Children 2 AB spontaneous Vital Signs and Lab Results Vital Signs Most Recent Vital Signs in EMR: Most Recent Vital Signs Temp Pulse Resp BP Pulse Ox 36.9 C 89 18 118/75 97 08/22/21 08:20 08/22/21 08:20 08/22/21 08:20 08/22/21 08:20 08/22/21 08:20 Lab Results Blood Type / Crossmatch: No Data to Display Complete Blood Count: No Data to Display Complete Metabolic Panel: Sodium Level 145 mmol/L (136-145) 07/25/21 09:07 07/25/21 Potassium Level 4.6 mmol/L (3.5-5.1) 07/25/21 09:07 07/25/21 Chloride Level 106 mmol/L (98-107) 07/25/21 09:07 07/25/21 Carbon Dioxide Level 31.3 mmol/L (21.0-32.0) 07/25/21 09:07 07/25/21 Blood Urea Nitrogen 15 mg/dL (7-18) 07/25/21 09:07 07/25/21 Creatinine 0.8 mg/dL (0.55-1.02) 07/25/21 09:07 07/25/21 Estimated GFR/1.73 m2 >= 60.00 (mL/min/1.73m2) 07/25/21 09:07 07/25/21 Calcium Level 9.4 mg/dL (8.5-10.1) 07/25/21 09:07 07/25/21 Albumin 4.2 g/dL (3.4-5.0) 07/25/21 09:07 07/25/21 Glucose Level 105 mg/dL (74-106) 07/25/21 09:07 07/25/21 Liver Function Panel: Alanine Aminotransferase (ALT/SGPT) 29 U/L (14-59) 07/25/21 09:07 07/25/21 Aspartate Amino Transf (AST/SGOT) 14 U/L (15-37) L 07/25/21 09:07 07/25/21 Coagulation Panel: No Data to Display Cardiac Panel: No Data to Display Arterial Blood Gas: No Data to Display Venous Blood Gas: No Data to Display Pancreas Panel: No Data to Display Thyroid Panel: Thyroid Stimulating Hormone (TSH) 1.26 uIU/mL (0.36-3.74) 07/25/21 09:07 07/25/21 Infectious Disease: Coronavirus (COVID-19)(PCR) Negative (Negative) 08/20/21 09:31 08/20/21 Coronavirus 2019 Source Nasal/Nares 08/20/21 09:31 08/20/21 Blood Cultures: No Data to Display Toxicology Panel: No Data to Display Anesthesia Assessment and Plan Anesthesia History Personal History: No History of Anesthesia Complications Family History: No Family History of Anesthesia Complications Exercise Tolerance Exercise Tolerance: Metabolic Equivalents>4 Pertinent Negatives Pertinent Negatives: No Symptoms of GERD Cardiac & Pulmonary Exam Cardiac Exam: Normal S1/S2 Heart Sounds Pulmonary Exam: Clear Bilateral Breath Sounds Implantable Cardiac Device Does patient have a Pacemaker or an ICD?: No Airway Exam Known Difficult Airway: No Mallampati Class: 1 Mouth Opening: Normal (> 3cm) Thyromental Distance: Greater than 3 cm Neck Range of Motion: Full ROM Neck Circumference: Normal Teeth Condition: Normal Dentition ASA Classification ASA Score: ASA 2 Emergency Case?: No NPO Status NPO Status: NPO Clears >2 hours, Solids >8 hours Anesthesia Plan Resuscitation Status: Full Code Anesthesia Technique: General Anesthesia Airway Planned: Natural Airway Monitors Used: Standard Monitors
[2021-08-22 08:55] VITALS: BMI 24.3
--- NOTE | 2021-08-22 09:43 | BOWEL_PTH ---
PATIENT: Jennifer Nguyen LOC: [facility] U#:[id number] AGE/SX: 61/F ROOM: RE08/22/[address]: Maia Bocanegra MD : [id number] BED: DIS: 08/22/2021 SPEC #: [id number] RECD: 08/22/21 13:02 STATUS: BROWN CHAPPELL #: [id number] ANNETTA: 08/22/21 09:[address]: Maia Bocanegra DEPT: Surgical Specimen RECD BY: Roseline Verduzco ENTERED: 08/22/21 13:03 SP TYPE: Bowel OTHR DR: Tere Chacon, JONH Tissues: 1 - BIOPSY BOWEL 2 - BIOPSY BOWEL 3 - BIOPSY BOWEL 4 - BIOPSY BOWEL 5 - BIOPSY BOWEL Procedures: GROSS AND MICRO LEVEL 4 Comments: [id number]
[2021-08-22 09:58] VITALS: BP 119/77; PULSE 80; RESP 16; TEMP 36.8; O2SAT 98
--- NOTE | 2021-08-22 10:10 | W.ANESPOSTOP ---
Postoperative Evaluation Date, Time and Location Date Performed: 08/22/21 Time Performed: 10:10 Patient Location: Day Surgery Unit Vital Signs Most Recent Imported Vital Signs: Most Recent Vital Signs Temp Pulse Resp BP Pulse Ox 36.8 C 80 16 119/77 98 08/22/21 09:58 08/22/21 09:58 08/22/21 09:58 08/22/21 09:58 08/22/21 09:58 Pain Score Most Recent Pain Score: Most Recent Pain Score Pain Level 0 08/22/21 09:58 Assessment Mental Status: Awake (Alert & Oriented to Patient Baseline) Airway and Respiratory Function: Patent airway with normal (patient baseline) respiratory exam Cardiovascular Function: Hemodynamically Stable Hydration Status: Adequately Hydrated Nausea & Vomiting: No Nausea or Vomiting Pain: Pt. Denies Any Pain Peripheral Nerve Block: Patient did not receive a nerve block
== END 2021-08-22 11:00 | disposition home or self-care (01) ==
LOC: SUR 08:15
PROVIDERS: PCP Nurse Practitioner Family; Visit Provider Surgery
PROC: 0DJD8ZZ Inspection of Lower Intestinal Tract, Via Natural or Artificial Opening Endoscopic (ICD-10-PCS; CPT 45378; principal; 2021-08-22 09:45)
DX: R19.7 Diarrhea, unspecified (principal); R73.03 Prediabetes; K21.9 Gastro-esophageal reflux disease without esophagitis; F41.1 Generalized anxiety disorder
CPT/HCPCS: 45380; 88305

== ENCOUNTER 2022-04-22 17:08 | Outpatient (REF) | payer MEDICAID, SELFPAY ==
[2022-04-24 11:18] LABS: COVID-19 RT-PCR UVMMC Result Negative (Negative)
== END 2022-04-22 17:09 | disposition home or self-care (01) ==
LOC: LBN 17:08
PROVIDERS: PCP Nurse Practitioner Family; Visit Provider Physician Assistant
DX: J02.9 Acute pharyngitis, unspecified (principal); Z20.822 Contact with and (suspected) exposure to COVID-19
CPT/HCPCS: U0003; 87070

== ENCOUNTER 2022-05-31 17:13 | Emergency (ER) | payer MEDICAID, SELFPAY ==
[2022-05-31 17:29] VITALS: BP 138/79; PULSE 98; RESP 18; TEMP 36.9; O2SAT 98
--- NOTE | 2022-05-31 17:44 | W.ED.GENAD ---
Discharge Plan Disposition Patient Disposition: HOME Condition: Improving Discharge Details Clinical Impression: Acute viral syndrome Primary Care Provider: Tere Chacon ED Provider: Prabhjot Clifton Home Meds and New Rx's Prescriptions: Continued gabapentin 300 mg capsule 300 mg PO QHS Discharge Instructions Instructions: Viral Syndrome (ED) Additional Instructions: Home to rest this evening. We will call you with your influenza and COVID test results. Tylenol and ibuprofen as needed for aches, pains or fever. Small, frequent sips of fluids to maintain hydration. Discharge Data Discharge Date/Time-TO BE ENTERED AT DEPARTURE: 05/31/22 18:17 Medical Decision Making 62-year-old female, states she has had COVID twice. Presents with 2 days of fever, cough, malaise, body ache after sick contact with a grandchild who had a similar illness. She reports a negative home COVID test. She arrives to the ER with unremarkable vital signs and is generally speaking well-appearing. Patient given acetaminophen, COVID and flu testing obtained. She requested discharged home and I will call her with the results (RSV, influenza, SARS-CoV-2 negative). HPI General Mode of arrival: ambulatory. Date/Time Provider Initiated Documentation: 05/31/22 17:22. Limitations to Documentation: no limitations. Information obtained by: patient. History of Present Illness 62 year old F presents to the emergency department with the chief complaint of 2 days of sore throat, cough, headache, body ache, described as moderate and similar to prior episodes, and is localized to the head, chest, upper extremity and lower extremity. Patient started experiencing this day(s) and it has been constant. No relieving factors improve symptom(s), No exacerbating factors reported . Patient notes cough, fever/chills and headaches; denies chest pain, nausea/vomiting and shortness of breath. Patient did receive the following treatments prior to arrival, none Related Data Home Medications Medication Instructions Recorded Confirmed gabapentin 300 mg capsule 300 mg PO QHS 08/20/21 05/31/22 Allergies Allergy/AdvReac Type Severity Reaction Status Date / Time phenazopyridine Allergy Intermediate HIVES Verified 05/31/22 17:33 [Phenazopyridine] sulfamerazine [Sulfamerazine] Allergy Intermediate HIVES Verified 05/31/22 17:33 norfloxacin Allergy Unknown unknown Verified 05/31/22 17:33 peanut AdvReac Verified 05/31/22 17:33 pork derived (porcine) AdvReac Verified 05/31/22 17:33 General Stated Complaint: GenMedical SETH: 4 Review of Systems Narrative: Sick contact with grandchild. See HPI. 7 systems were reviewed [facility] All Active Problems (Updated 05/31/22 @ 17:47 by Prabhjot Clifton MD) Acute viral syndrome (Acute) Plantar fasciitis (Acute) GERD (gastroesophageal reflux disease) (Chronic) Prediabetes (Chronic) Generalized anxiety disorder (Chronic) Hyperlipidemia (Chronic) Diarrhea (Chronic) Negative colonoscopy 2020 History of right breast cancer (Chronic ~2002) DCIS, high grade, grade 3 comedo type, [place] positive in summer 2002 s/p lumpectomy, radiation and 5yrs of tamoxifen at [facility] Medical History COVID-19 (~08/2020) 08/2020-nasal congestion, cough 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 Father Hypertension Sister No problems noted. Sister Type 2 diabetes mellitus Colon cancer Sister No problems noted. Brother Hypertension Brother Substance abuse Alcohol abuse Son Crohns disease Daughter Crohns disease Maternal Grandfather No problems noted. Maternal Grandmother Heart disease Paternal Grandfather No problems noted. Paternal Grandmother No problems noted. Social History Smoking/Tobacco Use Status: Never Second Hand Exposure: No Smoking risk assessment performed?: Yes Alcohol Intake: never Drug use: Never Substance use type: does not use Caregiver/Support person: No Household members: spouse Housing: house Communication Needs: None Pets and animals: No Sexually active: Yes Do you think of yourself as: straight/heterosexual Current gender identity: female What is your relationship status?: How often do you talk on the phone with friends or family?: three or more times per week How often do you get together with friends or relatives?: twice per week Do you belong to any clubs or organized social groups?: no Panel score (0-1 are the most socially isolated patients): 2 What type of physical activity do you participate in: walking Duration: 15-30 minutes/day Frequency: 3-4 times per week Connie/Episcopal: Church Seatbelt use: always Helmet use: Yes Helmet use: always Drive intox or ride w/intox driver education instructor: No Do you feel safe at home: Yes Do you feel safe in your relationship?: Yes Female Reproductive History Menstrual Menopause type: surgical History History 2 Para 2 Hx # Term Pregnancies Multiple births Hx # Pregnancies Ectopic pregnancies AB induced Hx Number of Living Children 2 AB spontaneous Exam Narrative Exam Narrative: GEN: awake, alert, oriented 3. Pleasant, well groomed, interactive. HEAD: Normocephalic, atraumatic ENT: Mucous membranes moist, oropharynx slightly erythematous but no swelling or exudate, tympanic membranes visualized and clear bilaterally, External ear exam unremarkable EYES: PERRL, EOMI NECK: Full ROM, no SOLE, no menigismus CHEST/RESP: Nontender, clear to auscultation bilateral, no wheeze/rhonchi/rales, cough noted CARDIOVASCULAR: RRR, no murmur, rub grant. 2+ Rad pulse bilateral ABDOMEN: Soft, nontender, no mass. +Bowel sounds EXT: Full ROM, no edema, no rash Neuro: Grossly normal neurologic exam, conversant, interactive. Psych: Speech fluent, thoughts congruent, affect normal Course Vital Signs Vital signs: Vital Signs Temperature 36.9 C 05/31/22 17:29 Pulse 98 H 05/31/22 17:29 Respiratory Rate 18 05/31/22 17:29 Blood Pressure 138/79 05/31/22 17:29 Pulse Oximetry 98 05/31/22 17:29 Temperature 36.9 C 05/31/22 17:29 Temperature Source Temporal Artery Scan 05/31/22 17:29 Pulse 98 H 05/31/22 17:29 Respiratory Rate 18 05/31/22 17:29 Respiratory Effort Non-Labored 05/31/22 17:33 Blood Pressure 138/79 05/31/22 17:29 Blood Pressure Position Sitting 05/31/22 17:29 Pulse Oximetry 98 05/31/22 17:29 Oxygen Delivery Method Room Air 05/31/22 17:29 Oxygen Flow Rate 0 05/31/22 17:29
[2022-05-31 17:48] VITALS: RESP 18
[2022-05-31] MEDS: Acetaminophen 500 MG TAB 1000 MG PO (17:55)
[2022-05-31 18:34] LABS: COVID-19 PCR Negative (Negative); Influenza A PCR Negative (Negative); Influenza B PCR Negative (Negative); RSV PCR Negative (Negative)
[2022-05-31 18:36] LABS: Source Nasopharynx
== END 2022-05-31 18:17 | disposition home or self-care (01) ==
PROVIDERS: Emergency Provider Emergency Medicine; PCP Nurse Practitioner Family
DX: B34.9 Viral infection, unspecified (principal); Z20.822 Contact with and (suspected) exposure to COVID-19; Z86.16 Personal history of COVID-19
CPT/HCPCS: 87637; 99283; 99284

== ENCOUNTER 2022-06-04 11:30 | Emergency (ER) | payer MEDICAID, SELFPAY ==
[2022-06-04 11:33] VITALS: BP 125/101; PULSE 109; RESP 18; TEMP 38; O2SAT 98
[2022-06-04 12:00] LABS: Abs Immature Grans 0.08 10^3/uL (0.0-0.06); Absolute Lymphocyte Count 1.45 10^3/uL (1.2-3.4); Absolute Monocyte Count 1.87 10^3/uL (0.1-0.8); Absolute Neutrophil Count 12.96 10^3/uL (1.2-6.7); Basophils % 0.4; Eosinophils % 0.5; HCT 41.1 % (36.0-46.0); HGB 13.9 g/dL (11.2-15.7); Immature Grans % 0.5; Lymphocytes % 8.8; MCH 29.2 pg (27.0-33.0); MCHC 33.8 % (32.0-36.0); MCV 86 fL (80-95); MPV 10.6 fL (8.0-11.0); Monocytes % 11.3; Neutrophils % 78.5; Platelet Count 263 10^3/uL (130-400); RBC 4.76 10^6/uL (3.93-5.22); RDW 11.9 % (11.7-14.6); WBC 16.51 10^3/uL (4.4-10.8)
[2022-06-04 12:02] LABS: Absolute Basophil Count 0.07 10^3/uL (0.0-0.2); Absolute Eosinophil Count 0.08 10^3/uL (0.0-0.7)
[2022-06-04 12:20] LABS: Diff Comment Agrees w/ Instrument; RBC Morphology Normal
--- NOTE | 2022-06-04 12:20 | W.ED.GENAD ---
Discharge Plan Disposition Patient Disposition: HOME Condition: Stable Discharge Details Clinical Impression: Cough Primary Care Provider: Tere Chacon ED Provider: Gordy Whitley Home Meds and New Rx's Prescriptions: New doxycycline hyclate 100 mg capsule 100 mg PO BID Qty: 20 0RF Continued gabapentin 300 mg capsule 300 mg PO QHS benzonatate 100 mg capsule 100 mg PO TID PRN (Reason: cough) Qty: 20 0RF Discharge Instructions Instructions: Acute Cough (ED) Additional Instructions: Doxycycline as directed. [id number] medication as directed for symptomatic control. Please watch for new or worsening symptoms and return to the ER for any concerns. Lastly, please contact your primary care provider to make them aware of your ER visit, ongoing symptoms, potential need for outpatient reevaluation. Medical Decision Making 62-year-old female who reports that she is otherwise fairly healthy presents to the ER reporting cough, body aches for the past 6 days or so, seen in the ER on Friday, diagnosed with a viral syndrome but she reports no improvement of her symptoms. She took Tylenol but no other [id number] medications. In triage she is hypertensive, febrile and tachycardic. Clinically she appears well, nontoxic. Plan is to obtain IV access, routine screening laboratory values, give IV fluid, p.o. Tylenol, obtain a chest x-ray and recheck a flu, COVID, RSV swab. Patient responded well to IV fluid and Tylenol. Now normotensive and no longer with tachycardia. Laboratory values reveal a white blood cell count of 16.51 otherwise grossly unremarkable. Chest x-ray unremarkable. Discussed findings with patient and family. Given her leukocytosis, decreased right lung base sounds, symptoms for at least 6 days, will provide antibiotics for concern of early pneumonia. Standard discharge and return precautions were provided. Patient understands, is agreeable to this plan, and has no additional questions or concerns upon discharge. This documentation was generated using [employer] system, please disregard any oddities of phrase or misspellings. Medical Records Medical records reviewed: Yes I reviewed the patient's medical records. Imaging Data Radiologic Study: Attestation: I personally reviewed and interpreted this imaging study as follows: Imaging: X-Ray Radiologist's impression: Exam(s) XR PORTABLE CHEST AP EXAM: XR PORTABLE CHEST AP CLINICAL HISTORY: cough/fever TECHNIQUE: 2D digital imaging was performed of the chest. One image was obtained. An AP view was obtained. COMPARISON: CR XR PORTABLE CHEST AP from 09/14/2020 FINDINGS: MEDIASTINUM: Normal. HEART: Normal. PULMONARY VASCULATURE: Normal. LUNGS: Clear. PLEURAL SPACE: No pleural effusion or pneumothorax. BONE:Within normal limits for the patient's age. OTHER FINDINGS:Normal. IMPRESSION: No acute pulmonary findings. Lab Data Lab results reviewed: Yes I reviewed the patient's lab results. Labs: Laboratory Tests Range/Units 06/04/22 06/04/22 06/04/22 11:54 11:54 11:58 WBC (4.4-10.8) 10^3/uL 16.51 H RBC (3.93-5.22) 10^6/uL 4.76 Hgb (11.2-15.7) g/dL 13.9 Hct (36.0-46.0) % 41.1 MCV (80-95) fL 86 MCH (27.0-33.0) pg 29.2 MCHC (32.0-36.0) % 33.8 RDW (11.7-14.6) % 11.9 Plt Count (130-400) 10^3/uL 263 MPV (8.0-11.0) fL 10.6 Immature Gran % 0.5 Neutrophils % 78.5 Lymphocytes % 8.8 Monocytes % 11.3 Eosinophils % 0.5 Basophils % 0.4 Nucleated RBC % (0.0-0.3) % 0.0 Absolute Neutrophils (1.2-6.7) 10^3/uL 12.96 H Absolute Lymphocytes (1.2-3.4) 10^3/uL 1.45 Absolute Monocytes (0.1-0.8) 10^3/uL 1.87 H Absolute Eosinophils (0.0-0.7) 10^3/uL 0.08 Absolute Basophils (0.0-0.2) 10^3/uL 0.07 RBC Morphology Normal Sodium Cancelled Potassium Cancelled Chloride Cancelled Carbon Dioxide Cancelled Anion Gap Cancelled BUN Cancelled Creatinine Cancelled Est GFR (CKD-EPI 2020) Cancelled Glucose Cancelled Calcium Cancelled Total Bilirubin Cancelled AST Cancelled ALT Cancelled Alkaline Phosphatase Cancelled Total Protein Cancelled Albumin Cancelled Urine Color (Yellow) Urine Clarity (Clear) Urine pH (5-8) Ur Specific [place] (1.005-1.025) Urine Protein (Negative) mg/dL Urine Ketones (Negative) mg/dL Urine Blood (Negative) Urine Nitrite (Negative) Urine Bilirubin (Negative) Urine Urobilinogen (Up TO 0.2) EU/dL Ur Leukocyte Esterase (Negative) Urine RBC (0-2) HPF Urine WBC (0-5) HPF Ur Epithelial Cells (Negative) HPF Urine Crystals (Negative) HPF Urine Bacteria (Negative) HPF Urine Casts (Negative) LPF Urine Mucus (Negative) Ur Culture Indicated? Urine Glucose (Negative) mg/dL COVID-19 Source Not Applicable SARS-CoV-2 (PCR) (Negative) Negative Influenza Type A (PCR) (Negative) Negative Influenza Type B (PCR) (Negative) Negative RSV (PCR) (Negative) Negative Range/Units 06/04/22 06/04/22 12:30 13:30 WBC (4.4-10.8) 10^3/uL RBC (3.93-5.22) 10^6/uL Hgb (11.2-15.7) g/dL Hct (36.0-46.0) % MCV (80-95) fL MCH (27.0-33.0) pg MCHC (32.0-36.0) % RDW (11.7-14.6) % Plt Count (130-400) 10^3/uL MPV (8.0-11.0) fL Immature Gran % Neutrophils % Lymphocytes % Monocytes % Eosinophils % Basophils % Nucleated RBC % (0.0-0.3) % Absolute Neutrophils (1.2-6.7) 10^3/uL Absolute Lymphocytes (1.2-3.4) 10^3/uL Absolute Monocytes (0.1-0.8) 10^3/uL Absolute Eosinophils (0.0-0.7) 10^3/uL Absolute Basophils (0.0-0.2) 10^3/uL RBC Morphology Sodium 137 Potassium 4.1 Chloride 100 Carbon Dioxide 28.6 Anion Gap 8.4 BUN 9 Creatinine 0.7 Est GFR (CKD-EPI 2020) 98.34 Glucose 113 H Calcium 9.2 Total Bilirubin 0.5 AST 32 ALT 62 H Alkaline Phosphatase 131 H Total Protein 7.9 Albumin 3.5 Urine Color (Yellow) Yellow Urine Clarity (Clear) Clear Urine pH (5-8) 7.5 Ur Specific [place] (1.005-1.025) 1.015 Urine Protein (Negative) mg/dL Negative Urine Ketones (Negative) mg/dL Negative Urine Blood (Negative) Negative Urine Nitrite (Negative) Negative Urine Bilirubin (Negative) Negative Urine Urobilinogen (Up TO 0.2) EU/dL 0.2 Ur Leukocyte Esterase (Negative) Small H Urine RBC (0-2) HPF 0-2 Urine WBC (0-5) HPF 5-10 Ur Epithelial Cells (Negative) HPF Moderate Urine Crystals (Negative) HPF Negative Urine Bacteria (Negative) HPF Few Urine Casts (Negative) LPF Negative Urine Mucus (Negative) Negative Ur Culture Indicated? No/Sq. Contamination Urine Glucose (Negative) mg/dL Negative COVID-19 Source SARS-CoV-2 (PCR) (Negative) Influenza Type A (PCR) (Negative) Influenza Type B (PCR) (Negative) RSV (PCR) (Negative) HPI General Mode of arrival: ambulatory. Date/Time Provider Initiated Documentation: 06/04/22 11:37. Limitations to Documentation: no limitations. Information obtained by: patient and family. History of Present Illness 62 year old F presents to the emergency department with the chief complaint of cough, described as moderate, with intensity rated at 4. Quality is described as aching (With cough), and is localized to the chest. Patient reports no radiation. Patient started experiencing this day(s) (6) and it has been constant. No relieving factors improve symptom(s), No exacerbating factors reported . Patient notes cough, fever/chills and headaches. Patient did receive the following treatments prior to arrival, other (Tylenol early this morning) Related Data Home Medications Medication Instructions Recorded Confirmed gabapentin 300 mg capsule 300 mg PO QHS 08/20/21 06/04/22 benzonatate 100 mg capsule 100 mg PO TID PRN cough #20 caps 06/03/22 06/04/22 doxycycline hyclate 100 mg capsule 100 mg PO BID #20 caps 06/04/22 Previous Rx's Medication Instructions Recorded benzonatate 100 mg capsule 100 mg PO TID PRN cough #20 caps 06/03/22 doxycycline hyclate 100 mg capsule 100 mg PO BID #20 caps 06/04/22 Allergies Allergy/AdvReac Type Severity Reaction Status Date / Time phenazopyridine Allergy Intermediate HIVES Verified 06/04/22 11:39 [Phenazopyridine] sulfamerazine [Sulfamerazine] Allergy Intermediate HIVES Verified 06/04/22 11:39 norfloxacin Allergy Unknown unknown Verified 06/04/22 11:39 peanut AdvReac Verified 06/04/22 11:39 pork derived (porcine) AdvReac Verified 06/04/22 11:39 General Stated Complaint: GenMedical SETH: 3 Review of Systems Constitutional Constitutional: Reports chills, Denies fever(s) and Reports headache(s) ENT Ears, Nose, Mouth, and Throat: Reports headache(s) and Denies sore throat Cardiovascular Cardiovascular: Reports chest pain (With coughing) and Denies dyspnea Respiratory Respiratory: Reports cough and Denies dyspnea Gastrointestinal Gastrointestinal: Denies abdominal pain, Denies nausea and Denies vomiting Genitourinary Genitourinary: Denies dysuria Musculoskeletal Musculoskeletal: Denies back pain Integumentary/Breasts Skin/Breast: Denies rash Neurologic Neurologic: Reports headache(s) PFSH All Active Problems Acute viral syndrome (Acute) Cough (Acute) Plantar fasciitis (Acute) GERD (gastroesophageal reflux disease) (Chronic) Prediabetes (Chronic) Generalized anxiety disorder (Chronic) Hyperlipidemia (Chronic) Diarrhea (Chronic) Negative colonoscopy 2020 History of right breast cancer (Chronic ~2002) DCIS, high grade, grade 3 comedo type, [place] positive in summer 2002 s/p lumpectomy, radiation and 5yrs of tamoxifen at [facility] Medical History COVID-19 (~08/2020) 08/2020-nasal congestion, cough 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 Father Hypertension Sister No problems noted. Sister Type 2 diabetes mellitus Colon cancer Sister No problems noted. Brother Hypertension Brother Substance abuse Alcohol abuse Son Crohns disease Daughter Crohns disease Maternal Grandfather No problems noted. Maternal Grandmother Heart disease Paternal Grandfather No problems noted. Paternal Grandmother No problems noted. Social History Smoking/Tobacco Use Status: Never Second Hand Exposure: No Smoking risk assessment performed?: Yes Alcohol Intake: never Drug use: Never Substance use type: does not use Caregiver/Support person: No Household members: spouse Housing: house Communication Needs: None Pets and animals: No Sexually active: Yes Do you think of yourself as: straight/heterosexual Current gender identity: female What is your relationship status?: How often do you talk on the phone with friends or family?: three or more times per week How often do you get together with friends or relatives?: twice per week Do you belong to any clubs or organized social groups?: no Panel score (0-1 are the most socially isolated patients): 2 What type of physical activity do you participate in: walking Duration: 15-30 minutes/day Frequency: 3-4 times per week Connie/Jew: Muslim Seatbelt use: always Helmet use: Yes Helmet use: always Drive intox or ride w/intox auto driver: No Do you feel safe at home: Yes Do you feel safe in your relationship?: Yes Female Reproductive History Menstrual Menopause type: surgical History History 2 Para 2 Hx # Term Pregnancies Multiple births Hx # Pregnancies Ectopic pregnancies AB induced Hx Number of Living Children 2 AB spontaneous Exam Const General: cooperative, healthy appearing, comfortable and no acute distress Orientation: alert and awake HENMT Head: normal to inspection, normocephalic and atraumatic Ears: external ears normal, TM's normal bilaterally and EAC's normal General nose exam: external nose normal Face and sinus: normal facial exam Mouth: moist mucous membranes Eyes General: appearance normal, both eyes and all related structures Conjunctivae: conjunctivae normal Neck Neck: normal visual inspection, full ROM, no lymphadenopathy, no meningeal signs, trachea midline and supple Resp Effort & Inspection: normal respiratory effort and able to speak in complete sentences Auscultation: diminished lung sounds on the right in the lower lung mc Cardio Rate: regular rate Rhythm: regular rhythm GI Palpation: soft and nontender Back/Spine/Pelvis Back: No back tenderness Skin General skin exam: no rashes or lesions noted Neuro General: patient alert, patient awake, moves all extremities and no focal motor deficits Cognition: normal cognition Speech: speech normal Gait: normal gait Sensory Exam: no sensory deficits noted Extrem General: normal to inspection, full ROM, capillary refill normal, no pedal edema and no calf tenderness Psych Appearance: grossly normal Mental Status: mental status grossly normal Course Vital Signs Vital signs: Vital Signs Temperature 38.0 C H 06/04/22 11:33 Pulse 109 H 06/04/22 11:33 Respiratory Rate 18 06/04/22 11:33 Blood Pressure 125/101 H 06/04/22 11:33 Pulse Oximetry 98 06/04/22 11:33 Temperature 38.0 C H 06/04/22 11:33 Temperature Source Oral 06/04/22 11:33 Pulse 109 H 06/04/22 11:33 Respiratory Rate 18 06/04/22 11:33 Respiratory Effort 06/04/22 11:37 Blood Pressure 125/101 H 06/04/22 11:33 Blood Pressure Position Sitting 06/04/22 11:33 Pulse Oximetry 98 06/04/22 11:33 Oxygen Delivery Method Room Air 06/04/22 11:33 Oxygen Flow Rate 0 06/04/22 11:33 Pain Level 9 06/04/22 11:33
[2022-06-04] MEDS: Normal Saline 1,000 ML 1000 ML IV (12:35)
[2022-06-04 12:39] LABS: COVID-19 PCR Negative (Negative); Influenza A PCR Negative (Negative); Influenza B PCR Negative (Negative); RSV PCR Negative (Negative)
[2022-06-04] MEDS: Acetaminophen 500 MG TAB 1000 MG PO (12:47)
[2022-06-04] MEDS: Acetaminophen 500 MG TAB (12:47)
[2022-06-04 12:51] LABS: ALT 62 U/L (14-59); AST 32 U/L (15-37); Albumin 3.5 g/dL (3.4-5.0); Alkaline Phosphatase 131 U/L (46-116); Anion Gap 8.4 mmol/L (3-11); BUN 9 mg/dL (7-18); Bilirubin, Total 0.5 mg/dL (0.2-1.0); CO2 28.6 mmol/L (21.0-32.0); CREATININE 0.7 mg/dL (0.55-1.02); Calcium 9.2 mg/dL (8.5-10.1); Chloride 100 mmol/L (98-107); Estimated GFR 98.34 (mL/min/1.73m2); Glucose 113 mg/dL (74-106); Potassium 4.1 mmol/L (3.5-5.1); Sodium 137 mmol/L (136-145); Total Protein 7.9 g/dL (6.4-8.2)
--- NOTE | 2022-06-04 13:05 | DI.RAD_ITS ---
Exam(s) XR PORTABLE CHEST AP EXAM: XR PORTABLE CHEST AP CLINICAL HISTORY: cough/fever TECHNIQUE: 2D digital imaging was performed of the chest. One image was obtained. An AP view was ob tained. COMPARISON: CR XR PORTABLE CHEST AP from 09/14/2020 FINDINGS: MEDIASTINUM: Normal. HEART: Normal. PULMONARY VASCULATURE: Normal. LUNGS: Clear. PLEURAL SPACE: No pleural effusion or pneumothorax. BONE:Within normal limits for the patient's age. OTHER FINDINGS:Normal. IMPRESSION: No acute pulmonary findings. DATA REPOSITORY: RADIATION DOSE DELIVERED:
[2022-06-04 13:21] VITALS: BP 125/77; PULSE 95; RESP 18; O2SAT 97
[2022-06-04 13:34] LABS: Bilirubin Negative (Negative); Blood Negative (Negative); Clarity Clear (Clear); Glucose Negative (Negative); Ketones Negative (Negative); Leukocyte Esterase Small (Negative); Nitrite Negative (Negative); Specific Gravity 1.015 (1.005-1.025); Urobilinogen 0.2 EU/dL (Up TO 0.2); pH 7.5 (5-8)
[2022-06-04 13:41] LABS: Bacteria Few HPF (Negative); C & S Indicated? No/Sq. Contamination; Casts Negative LPF (Negative); Crystals Negative HPF (Negative); Epithelial Cells Moderate HPF (Negative); Mucus Negative (Negative); RBC 0-2 HPF (0-2)
== END 2022-06-04 14:35 | disposition home or self-care (01) ==
PROVIDERS: Emergency Provider Physician Assistant; PCP Nurse Practitioner Family
DX: R05.9 Cough, unspecified (principal); R52 Pain, unspecified; R00.0 Tachycardia, unspecified; I10 Essential (primary) hypertension; D72.829 Elevated white blood cell count, unspecified; Z20.822 Contact with and (suspected) exposure to COVID-19; Z86.16 Personal history of COVID-19
CPT/HCPCS: 80053; 87637; 96360; 99284; 71045; 81003; 81015; 85025

== ENCOUNTER → 2022-07-10 01:41 | Outpatient (CLI) | payer MEDICAID, SELFPAY ==
--- NOTE | 2022-07-10 07:30 | DI.US_ITS ---
Exam(s) US RENAL EXAM: US RENAL CLINICAL HISTORY: suspected left kidney stone on abd xr,n20.0. TECHNIQUE: Mejias scale, color and spectral Doppler were used. COMPARISON: No exams were available for comparison FINDINGS: Renal size in cm: Right: 9.7 left: 10.2 Echogenicity: Normal Hydronephrosis: No Cyst or mass: No Nephrolithiasis: No Bladder:Normal . Both ureteral jets visualized. Prevoid vol:156 cc Postvoid vol: 0 IMPRESSION: No urinary tract calculi identified. DATA REPOSITORY:
== END ==
PROVIDERS: PCP Nurse Practitioner Family; Visit Provider Nurse Practitioner Family
DX: N20.0 Calculus of kidney (principal)
CPT/HCPCS: 76770

== ENCOUNTER 2023-04-22 08:22 | Outpatient (CLI) | payer MEDICAID, SELFPAY ==
[2023-04-22 12:15] LABS: HCT 44.6 % (36.0-46.0); HGB 14.9 g/dL (11.2-15.7); MCH 29.2 pg (27.0-33.0); MCHC 33.4 % (32.0-36.0); MCV 87 fL (80-95); MPV 10.8 fL (8.0-11.0); Platelet Count 250 10^3/uL (130-400); RBC 5.11 10^6/uL (3.93-5.22); RDW 12.4 % (11.7-14.6); RDW-SD 39.9 fL; WBC 8.39 10^3/uL (4.4-10.8)
[2023-04-22 12:33] LABS: ALT 33 U/L (14-59); AST 16 U/L (15-37); Alkaline Phosphatase 113 U/L (46-116); Anion Gap 6.8 mmol/L (3-11); BUN 16 mg/dL (7-18); Bilirubin, Total 0.4 mg/dL (0.2-1.0); CO2 31.2 mmol/L (21.0-32.0); CREATININE 0.7 mg/dL (0.55-1.02); Calcium 9.1 mg/dL (8.5-10.1); Chloride 104 mmol/L (98-107); Estimated GFR 97.72 (mL/min/1.73m2); Glucose 99 mg/dL (74-106); Potassium 3.9 mmol/L (3.5-5.1); Sodium 142 mmol/L (136-145); Total Protein 7.7 g/dL (6.4-8.2)
== END 2023-04-22 08:23 | disposition home or self-care (01) ==
LOC: LOS 08:22
PROVIDERS: PCP Nurse Practitioner Family; Referring Provider Nurse Practitioner Family; Visit Provider Nurse Practitioner Family
DX: R19.01 Right upper quadrant abdominal swelling, mass and lump (principal); Z85.3 Personal history of malignant neoplasm of breast
CPT/HCPCS: 36415; 80053; 85027

== ENCOUNTER → 2023-04-29 02:16 | Outpatient (CLI) | payer MEDICAID, SELFPAY ==
--- NOTE | 2023-04-29 07:00 | DI.US_ITS ---
Exam(s) US SOFT TISS ABD WALL/LOW BACK EXAM: US SOFT TISS ABD WALL/LOW BACK CLINICAL HISTORY: 1 month nontender mass RUQ,r19.01. TECHNIQUE: Ultrasound was performed using standard protocol. COMPARISON: US US RENAL from 07/10/2022 FINDINGS: Ultrasound of the area of concern superficially in the right upper quadrant. Images submitted for in terpretation. There is no evidence of solid or significant cystic mass at this level. Also no evidence of anterior abdominal wall hernia at this level IMPRESSION: No significant focal ultrasound findings in the region of clinical concern. DATA REPOSITORY:
== END ==
PROVIDERS: PCP Nurse Practitioner Family; Visit Provider Nurse Practitioner Family
DX: R19.01 Right upper quadrant abdominal swelling, mass and lump (principal)
CPT/HCPCS: 76705

== ENCOUNTER 2023-11-04 00:35 | Emergency (ER) | payer MEDICAID, SELFPAY ==
--- NOTE | 2023-11-04 00:30 | DI.CT_ITS ---
Exam(s) CT ABDOMEN PELVIS W EXAM: CT ABDOMEN PELVIS W CLINICAL HISTORY: vomiting, diarrhea, left and right abdominal pain TECHNIQUE: Imaging Protocol: Axial computed tomography images with coronal and sagittal reformatted images were created and reviewed. CONTRAST MATERIAL: Intravenous: Omnipaque 350 Contrast volume:100 mL Oral: No COMPARISON: No exams were available for comparison FINDINGS: ABDOMEN: Lung Bases: Scarring or atelectasis is seen in the left lingula. Liver: Normal density. No measurable mass. Portal, Superior Mesenteric, and Splenic Veins: Unremarkable. Gallbladder and Biliary Tract: No radiodense calculus or dilation. Pancreas: Normal density, no abnormal calcifications or inflammatory process. Spleen: Normal. Adrenals: There is a 1.9 x 1.0 cm slightly hypodense right adrenal mass. The left adrenal gland is u nremarkable. Kidneys: Normal size, contour and axis. There is a 6 mm nonobstructing stone in the midpole of the le ft kidney. There is a tiny hypodensity seen in the left kidney. It is too small for further charact erization but likely reflects a small cyst. No follow-up is recommended. No suspicious masses are s een. Abdominal Aorta: Abdominal portion non-dilated. Atherosclerotic calcification. Bowel: There is no evidence of bowel obstruction. There is mild bowel wall thickening, mild dilatati on and fluid-filled loops of small bowel. The findings are suspicious for an enteritis. There is no evidence of pneumatosis. No evidence of appendicitis. Peritoneal Cavity: No ascites, collection or mesenteric inflammatory response. No free air. Lymph Nodes: Within normal limits. Bones: Within normal limits for the patient's age. Soft Tissues: There is a diastasis in the anterior abdominal wall. PELVIS: Bladder: Symmetric distention, no gross wall thickening. Reproductive Organs: Status post hysterectomy. Lymph Nodes: Within normal limits. Bones: Within normal limits for the patient's age. IMPRESSION: 1. There is bowel wall thickening and fluid-filled loops of small bowel suspicious for an infectious/ inflammatory enteritis. Please correlate clinically. 2. 1.9 x 1.0 cm right adrenal mass. Nonemergent MRI of the abdomen is recommended for further evalua tion. 3. Left nephrolithiasis. No obstructive uropathy. Unexpected findings RADIATION DOSE DELIVERED: 866.6mGy.cm Total DLP DATA REPOSITORY: All CT scans at this facility are submitted to the National Radiology Data Registry (NRDR) Dose Index Registry (DIR) with the [employer] (ACR). RADIATION OPTIMIZATION: All CT scans at this facility use at least one of these dose optimization te chniques: automated exposure control; mA and/or kV adjustment per patient size (includes targeted exa ms where dose is matched to clinical indication); or iterative reconstruction.
[2023-11-04 00:41] VITALS: BP 129/84; PULSE 95; RESP 20; TEMP 36.8; O2SAT 97
--- NOTE | 2023-11-04 00:59 | ED.GENADUL_ITS ---
Discharge Plan Disposition Patient Disposition: Home Condition: Good Discharge Details Clinical Impression: Diarrhea, Nausea & vomiting Primary Care Provider: Tere Chacon ED Provider: Adelso Urbina Home Meds and New Rx's Prescriptions: New ondansetron 4 mg tablet,disintegrating 4 mg PO Q8H Qty: 20 0RF No Action gabapentin 300 mg capsule 300 mg PO QHS Qty: 90 3RF Discharge Instructions Instructions: Acute Nausea and Vomiting (ED) Additional Instructions: At this time your workup is returned reassuring. CT scan shows no evidence of significant abnormality. I suspect your symptoms are likely caused from a viral etiology. Please drink plenty of fluids and stay well-hydrated. Stick with a bland diet of rice, bananas, toast, applesauce. Take the Zofran as needed for nausea. Please take Pepto-Bismol to help with the diarrhea. Please take a probiotic daily for the next 1 to 2 weeks to help reestablish your gut health. If you notice any worsening of your symptoms, or any new symptoms such as vomiting, diarrhea, fever, chills, shortness of breath, chest pain, numbness, weakness, or fainting , please return immediately to the emergency department for reevaluation. Please follow up with your primary care provider as soon as possible for reassessment and reevaluation. As always, it was a pleasure p articipating in your medical care today. Referrals: Tere Chacon, LESLY [Primary Care Provider] - [facility] General Date/Time Provider Initiated Documentation: 11/04/23 00:36 . HPI Narrative: This is a pleasant 63-year-old female with a past medical history of high cholesterol, anxiety, prediabetic, GERD, DCIS of the right breast, previous lumpectomy, , total abdominal hysterectomy and bilateral salpingo- oophorectomy, abdominoplasty, who presents today for evaluation of vomiting and diarrhea. Patient states that yesterday she had a single episode of diarrhea and mild abdominal cramping, today at 4 PM she had 11 episodes of diarrhea, and multiple episodes of vomiting. Symptoms lasted till 10 PM. She now states she has nothing to vomit or diarrhea anymore. She admits to mild stomach pain, the left and right lower quadrants. She denies any blood in her stool or vomit. She denies any urinary complaints. No fever. No other complaints at this time. Related Data Home Medications Medication Instructions Recorded Confirmed gabapentin 300 mg capsule 300 mg PO QHS #90 caps 08/06/23 11/04/23 ondansetron 4 mg disintegrating 4 mg PO Q8H #20 tabs 11/04/23 tablet Previous Rx's Medication Instructions Recorded gabapentin 300 mg capsule 300 mg PO QHS #90 caps 08/06/23 ondansetron 4 mg disintegrating 4 mg PO Q8H #20 tabs 11/04/23 tablet Allergies Allergy/AdvReac Type Severity Reaction Status Date / Time phenazopyridine Allergy Intermediate HIVES Verified 11/04/23 00:48 [Phenazopyridine] sulfamerazine [Sulfamerazine] Allergy Intermediate HIVES Verified 11/04/23 00:48 norfloxacin Allergy Unknown unknown Verified 11/04/23 00:48 peanut AdvReac rash Verified 11/04/23 00:48 vomiting pork derived (porcine) AdvReac rash Verified 11/04/23 00:48 General Stated Complaint: Abd Prob SETH: 3 Review of Systems All systems reviewed & are unremarkable except as noted in HPI and below Exam Narrative Exam Narrative: 1.Const: Well-nourished, Well-developed, appearing stated age 2.Eyes: PERRL, no conjunctival injection, and symmetrical lids. 3.ENT: Atraumatic external nose and ears. Dry MM. Neck: Symmetric, trachea midline, No thyromegaly. 4.CVS: +S1/S2, No murmurs or gallops. Peripheral pulses 2+ and equal in all extremities. Brisk capillary refill in all extremities. 5.RESP: Unlabored respiratory effort. Clear to auscultation bilaterally. No wheezes rales or rhonchi 6.GI: Soft, nondistended. No guarding or rebound. Mild pain in the left mid to lower abdominal quadrant, minimal achiness on the right. No CVA tenderness 7.MSK: Normocephalic/Atraumatic, Extremities w/o deformity or ttp No cyanosis or clubbing, Normal movement of all extremities 8.Skin: Warm, Dry. No rashes or lesions. 9.Neuro: tinning equipment tender II-XII grossly intact. Sensation grossly intact, no focal neurologic deficits. 10.Psych: (AAO) x3. Appropriate mood and affect Course Vital Signs Vital signs: Vital Signs Temperature 36.8 C 11/04/23 00:41 Pulse 95 H 11/04/23 00:41 Respiratory Rate 20 11/04/23 00:41 Blood Pressure 129/84 11/04/23 00:41 Pulse Oximetry 97 11/04/23 00:41 Temperature 36.8 C 11/04/23 00:41 Pulse 95 H 11/04/23 00:41 Respiratory Rate 20 11/04/23 00:41 Respiratory Effort Normal, Non-Labored 11/04/23 00:48 Blood Pressure 129/84 11/04/23 00:41 Pulse Oximetry 97 11/04/23 00:41 Oxygen Delivery Method Room Air 11/04/23 00:41 Oxygen Flow Rate 0 11/04/23 00:41 Medical Decision Making This is a pleasant 63-year-old female with a past medical history of high cholesterol, anxiety, prediabetic, GERD, DCIS of the right breast, previous lumpectomy, , total abdominal hysterectomy and bilateral salpingo- oophorectomy, abdominoplasty, who presents today for evaluation of vomiting and diarrhea. Patient states that yesterday she had a single episode of diarrhea and mild abdominal cramping, today at 4 PM she had 11 episodes of diarrhea, and multiple episodes of vomiting. Symptoms lasted till 10 PM. She now states she has nothing to vomit or diarrhea anymore. She admits to mild stomach pain, the left and right lower quadrants. She denies any blood in her stool or vomit. She denies any urinary complaints. No fever. No other complaints at this time. Exam demonstrates well-appearing female, mild abdominal tenderness, worse on the left than the right. No flank or CVA tenderness. Differential includes diverticulitis, less likely appendicitis or urinary etiology. Will give Zofran rehydrate, monitor closely and reassess. No red flags for infectious diarrhea. Symptoms appear clinically inconsistent at this time with ACS. 2:54 AM Laboratory workup is returned, no significant abnormality. No electrolyte abnormality. Lipase normal. CT scan shows evidence of enteritis, no diverticulitis or entrapped kidney stone. Patient does have a nonobstructing stone. Patient feels much better after rehydration and Zofran. Pain is resolved. Symptoms appear consistent with viral gastroenteritis. No other evidence of acute life-threatening etiology at this time. Patient has not had any more bowel movements here. We will send her home with a slip for stool studies outpatient. Will give Zofran for home use. Recommend general diet for the next 24 to 48 hours. Discussed red flags for which to return. I have extensively reviewed the treatment plan and discharge instructions with the patient and their family. I have addressed all patient concerns at this time. T he patient and family was made aware of what symptoms to monitor for that would warrant a return to the emergency department. Discussed the plan with the patient and family, they demonstrate verbal understanding and agreement with our assessment and plan at this time. The documentation in this chart was dictated using [employer] dictation software. Please excuse any dictation errors. FINDINGS: Lungs: There are atelectatic changes in both lung bases. Liver: Normal. No mass. Gallbladder and bile ducts: Normal. No calcified stones. No ductal dilation. Pancreas: Normal. No ductal dilation. Spleen: Normal. No splenomegaly. Adrenal glands: Normal. No mass. Kidneys and ureters: There is a 6 mm nonobstructing stone in the interpolar region of the left kidney. There is a simple cyst in the upper pole of the left kidney measuring 6 mm. No hydronephrosis on either side. Stomach and bowel: Fluid-filled small bowel loops with no transition zone to suggest small bowel obstruction. No significant bowel dilatation. Appendix: No evidence of appendicitis. No underwent and 1 Intraperitoneal space: Unremarkable. No free air. No significant fluid collection. Vasculature: There are vascular calcifications. Pelvic phleboliths. Lymph nodes: Unremarkable. No enlarged lymph nodes. Urinary bladder: Unremarkable as visualized. Reproductive: Unremarkable as visualized. Bones/joints: There is a bone island in S1. Multilevel small anterior osteophytes of the lumbar spine, consistent with mild degenerative disease. Soft tissues: There is a small fat containing umbilical hernia. IMPRESSION: 1. Findings suggestive of enteritis. No small bowel obstruction. 2. Nonobstructing stone in the left kidney. Thank you for allowing us to participate in the care of your patient. Dictated and Authenticated by: Jair Freeman MD 11/04/2023 1:33 AM Eastern Time ([place] & [place]) Quality:SDOH Health Related Social Needs: No Data to Display PFSH All Active Problems (Updated 11/04/23 @ 02:26 by Adelso Urbina DO) Nausea & vomiting (Acute) Diarrhea (Acute) Pain in left young (Acute) Hyperlipidemia (Chronic) Prediabetes (Chronic) Generalized anxiety disorder (Chronic) History of right breast cancer (Chronic ~2002) DCIS, high grade, grade 3 comedo type, ER/AR positive in summer 2002 s/p lumpectomy, radiation and 5yrs of tamoxifen at [facility] Chronic diarrhea (Chronic) Insomnia (Chronic) Medical History 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 Father Hypertension Sister No problems noted. Sister Type 2 diabetes mellitus Colon cancer Sister No problems noted. Brother Hypertension Brother Substance abuse Alcohol abuse Son Crohns disease Daughter Crohns disease Maternal Grandfather No problems noted. Maternal Grandmother Heart disease Paternal Grandfather No problems noted. Paternal Grandmother No problems noted. Social History Smoking/Tobacco Use Status: Never Second Hand Exposure: No Smoking risk assessment performed?: Yes Alcohol Intake: never Drug use: Never Substance use type: does not use Caregiver/Support person: No Household members: spouse Housing: house Communication Needs: None Pets and animals: No Sexually active: Yes Do you think of yourself as: straight/heterosexual Current gender identity: female What is your relationship status?: How often do you talk on the phone with friends or family?: three or more times per week How often do you get together with friends or relatives?: twice per week Do you belong to any clubs or organized social groups?: no Panel score (0-1 are the most socially isolated patients): 2 What type of physical activity do you participate in: walking Duration: 15-30 minutes/day Frequency: 3-4 times per week Connie/Judaism: Zoroastrian Seatbelt use: always Helmet use: Yes Helmet use: always Drive intox or ride w/intox driver messenger: No Do you feel safe at home: Yes Do you feel safe in your relationship?: Yes Female Reproductive History Menstrual Menopause type: surgical History History 2 Para 2 Hx # Term Pregnancies Multiple births Hx # Pregnancies Ectopic pregnancies AB induced Hx Number of Living Children 2 AB spontaneous
[2023-11-04 01:01] LABS: Abs Immature Grans 0.03 10^3/uL (0.0-0.06); Absolute Basophil Count 0.03 10^3/uL (0.0-0.2); Absolute Eosinophil Count 0.06 10^3/uL (0.0-0.7); Absolute Lymphocyte Count 0.95 10^3/uL (1.2-3.4); Absolute Monocyte Count 0.44 10^3/uL (0.1-0.8); Absolute Neutrophil Count 8.27 10^3/uL (1.2-6.7); Basophils % 0.3; Eosinophils % 0.6; HCT 43.5 % (36.0-46.0); HGB 15.2 g/dL (11.2-15.7); Immature Grans % 0.3; Lymphocytes % 9.7; MCH 29.6 pg (27.0-33.0); MCHC 34.9 % (32.0-36.0); MCV 85 fL (80-95); MPV 10.7 fL (8.0-11.0); Monocytes % 4.5; Neutrophils % 84.6; Platelet Count 229 10^3/uL (130-400); RBC 5.13 10^6/uL (3.93-5.22); RDW-SD 36.9 fL; WBC 9.78 10^3/uL (4.4-10.8)
[2023-11-04] MEDS: Ondansetron 4 MG/2 ML VIAL IVP (01:07)
[2023-11-04] MEDS: Lactated Ringers 1,000 ML 1000 ML IV (01:09)
[2023-11-04] MEDS: Omnipaque 350 MG/ML 100 ML BTL IJ (01:11)
[2023-11-04] MEDS: Normal Saline - Diluent 50 ML VIAL IJ (01:14)
[2023-11-04 01:17] LABS: ALT 36 U/L (14-59); AST 20 U/L (15-37); Alkaline Phosphatase 120 U/L (46-116); Anion Gap 8.9 mmol/L (3-11); BUN 16 mg/dL (7-18); Bilirubin, Total 0.6 mg/dL (0.2-1.0); CO2 27.1 mmol/L (21.0-32.0); CREATININE 0.8 mg/dL (0.55-1.02); Calcium 8.9 mg/dL (8.5-10.1); Chloride 102 mmol/L (98-107); Estimated GFR 83.26 (mL/min/1.73m2); Glucose 142 mg/dL (74-106); Potassium 3.7 mmol/L (3.5-5.1); Sodium 138 mmol/L (136-145); Total Protein 7.5 g/dL (6.4-8.2)
[2023-11-04 01:23] LABS: Lipase 29 U/L (16-77)
--- NOTE | 2023-11-04 01:34 | DI.VRAD_ITS ---
PROCEDURE INFORMATION: Exam: CT Abdomen And Pelvis With Contrast Exam date and time: 11/04/2023 1:00 AM Age: 63 years old Clinical indication: Vomiting and other: Diarrhea; Generalized; Patient HX: Vomiting, diarrhea, left and right abdominal pain TECHNIQUE: Imaging protocol: Computed tomography of the abdomen and pelvis with contrast. Radiation optimization: All CT scans at this facility use at least one of these dose optimization techniques: automated exposure control; mA and/or kV adjustment per patient size (includes targeted exams where dose is matched to clinical indication); or iterative reconstruction. Contrast material: OMNIPAQUE 350; Contrast volume: 100 ml; Contrast route: INTRAVENOUS (IV); COMPARISON: US SOFT TISS ABD WALL/LOW BACK 04/29/2023 8:14 AM FINDINGS: Lungs: There are atelectatic changes in both lung bases. Liver: Normal. No mass. Gallbladder and bile ducts: Normal. No calcified stones. No ductal dilation. Pancreas: Normal. No ductal dilation. Spleen: Normal. No splenomegaly. Adrenal glands: Normal. No mass. Kidneys and ureters: There is a 6 mm nonobstructing stone in the interpolar region of the left kidney. There is a simple cyst in the upper pole of the left kidney measuring 6 mm. No hydronephrosis on either side. Stomach and bowel: Fluid-filled small bowel loops with no transition zone to suggest small bowel obstruction. No significant bowel dilatation. Appendix: No evidence of appendicitis. Intraperitoneal space: Unremarkable. No free air. No significant fluid collection. Vasculature: There are vascular calcifications. Pelvic phleboliths. Lymph nodes: Unremarkable. No enlarged lymph nodes. Urinary bladder: Unremarkable as visualized. Reproductive: Unremarkable as visualized. Bones/joints: There is a bone island in S1. Multilevel small anterior osteophytes of the lumbar spine, consistent with mild degenerative disease. Soft tissues: There is a small fat containing umbilical hernia. IMPRESSION: 1. Findings suggestive of enteritis. No small bowel obstruction. 2. Nonobstructing stone in the left kidney. Dictated and Authenticated by: Jair Freeman MD. Ordering:TOMMY Darden MD
[2023-11-04] MEDS: Ondansetron O.D.T. 4 MG TABEF, 3 TABS/BTL PO (02:34)
[2023-11-04 02:35] VITALS: BP 122/82; PULSE 82; RESP 16; TEMP 36.6; O2SAT 95
== END 2023-11-04 02:43 | disposition home or self-care (01) ==
PROVIDERS: Emergency Provider Student in an Organized Health Care Education/Training Program; PCP Nurse Practitioner Family
DX: R19.7 Diarrhea, unspecified (principal); R11.2 Nausea with vomiting, unspecified
CPT/HCPCS: 80053; 83690; 96361; 96374; 99285; 74177; 85025; 99284; J2405; J3490

== ENCOUNTER → 2023-12-15 02:52 | Outpatient (CLI) | payer MEDICAID, SELFPAY ==
--- NOTE | 2023-12-15 07:00 | DI.MRI_ITS ---
Exam(s) MR ABDOMEN WO/W EXAM: MR ABDOMEN WO/W CLINICAL HISTORY: f/u on right adrenal mass seen on CT,e27.8 TECHNIQUE: Multiplanar multisequence MRI was performed with both pre and post contrast infused seque nces. Contrast injected sequences were performed following IV injection of cc of Dotarem. COMPARISON: CT CT ABDOMEN PELVIS W from 11/04/2023 FINDINGS: There is motion artifact. VISUALIZED LUNG BASES: No pleural effusions evident. There is no ascites evident. LIVER: Normal size. No significant focal hepatic lesions. No obvious dilated intrahepatic ducts. BILIARY: There is no obvious gallbladder pathology. The CBD is not dilated. PANCREAS: There is no evidence of pancreatic mass nor dilatation of the pancreatic duct. SPLEEN: Spleen is not enlarged and there are no intrasplenic lesions.Splenic and portal veins are pat ent ADRENALS: Left adrenal gland unremarkable. There is a 2 x 1 cm right adrenal mass which is somewhat difficult to evaluate on this study because of the amount of motion artifact. It does appear to exhi bit some signal loss on out of phase chemical shift when compared to the in phase sequence. It exhib its some internal enhancement following contrast injection. KIDNEYS: No solid renal masses. No hydronephrosis.Small benign sub cm cyst in left kidney. Does not require further imaging. ABDOMINAL AORTA: Not enlarged and there is no significant para-aortic adenopathy. ANTERIOR ABDOMINAL WALL/GI: There is no evidence of significant anterior abdominal wall hernia in the field of view of this study.Is no evidence of obvious bowel obstruction. OSSEOUS: There are no lytic osseous lesions in the field of view of this study. IMPRESSION: 1. Less than optimal study because of the amount of motion artifact here. However, there does appear to be slight loss of signal within the 2 x 1 cm right adrenal nodule on out of phase sequences consi stent with lipid content and therefore probably an adenoma. Recommend follow-up scan in 6 months to ensure stability. At that time should undergo CT adrenal protocol without and with IV contrast. The intravenous contrast would not be required if the preliminary noninfused CT sequence reveals lack of change in size and density measurements less than 10 HU. DATA REPOSITORY:
[2023-12-15] MEDS: Normal Saline - Diluent 50 ML VIAL 25 ML IJ (08:14)
[2023-12-15] MEDS: Gadoterate meglumine 20 ML VIAL 14 ML IVP (08:16)
== END ==
PROVIDERS: PCP Nurse Practitioner Family; Visit Provider Nurse Practitioner Family
DX: E27.8 Other specified disorders of adrenal gland (principal); D35.01 Benign neoplasm of right adrenal gland
CPT/HCPCS: 74183

== ENCOUNTER 2024-07-05 01:14 | Outpatient (CLI) | payer MEDICAID, SELFPAY ==
[2024-07-05 10:29] LABS: CREATININE 0.6 mg/dL (0.55-1.02)
[2024-07-05] MEDS: Normal Saline - Diluent 50 ML VIAL IJ (10:41)
[2024-07-05] MEDS: Omnipaque 350 MG/ML 500 ML BTL-Imaging package 85 ML IJ (10:46)
--- NOTE | 2024-07-05 10:48 | DI.CT_ITS ---
Exam(s) CT ABDOMEN WO/W EXAM: CT ABDOMEN WO/W CLINICAL HISTORY: re-eval adrenal adenoma,D35.01. TECHNIQUE: Imaging Protocol: Axial computed tomography images with coronal and sagittal reformatted images were created and reviewed CONTRAST MATERIAL: Intravenous: Omnipaque 350 Contrast volume: 85 mL Oral: no COMPARISON: CT CT CHEST W from 08/18/[address] ABDOMEN PELVIS W from 11/04/2023 MR MR ABDOMEN WO/W from 12/15/2023 FINDINGS: ABDOMEN: Lung Bases: Normal where visualized. Liver: Normal density. No measurable mass. Gallbladder and biliary tract: No radiodense calculus or dilation. Pancreas: Normal density, no abnormal calcifications or inflammatory process. Spleen: Normal. Kidneys: Normal size, contour and axis. Stone again noted mid left kidney. No obstructive uropathy. No masses seen. Adrenal glands: Stable size circumscribed low-density nodule in the left adrenal gland measuring 2 x 1 cm. Absolute and relative washout calculations are consistent with an adenoma. Abdominal Aorta: Abdominal portion non-dilated. Lymph nodes: Within normal limits. Bones: Unremarkable for age. IMPRESSION: Stable size of right adrenal nodule. Enhancement and washout characteristics consistent with a benig n adenoma. RADIATION DOSE DELIVERED: !Error Total DLP DATA REPOSITORY: All CT scans at this facility are submitted to the National Radiology Data Registry (NRDR) Dose Index Registry (DIR) with the [employer] (ACR). RADIATION OPTIMIZATION: All CT scans at this facility use at least one of these dose optimization te chniques: automated exposure control; mA and/or kV adjustment per patient size (includes targeted exa ms where dose is matched to clinical indication); or iterative reconstruction.
== END 2024-07-05 01:34 ==
LOC: DI 01:14
PROVIDERS: PCP Nurse Practitioner Family; Visit Provider Nurse Practitioner Family
DX: D35.01 Benign neoplasm of right adrenal gland (principal)
CPT/HCPCS: 36415; 74170; 82565

== ENCOUNTER 2024-10-15 11:08 | Emergency (ER) | payer MEDICAID, SELFPAY ==
[2024-10-15 11:14] VITALS: BP 122/57; PULSE 100; RESP 16; TEMP 36.9; O2SAT 94
--- NOTE | 2024-10-15 12:15 | RT.EKG_ITS ---
APPROVED REPORT Exam: Resting ECG Reason for Exam: shortness of breath Patient Location: E HR:97 bpm ECG Measurements Heart Rate 97 AXIS AZ 126 P 64 QRSd 76 QRS 79 QT 353 T 43 QTc 448 Conclusion Sinus rhythm...normal P axis, V-rate 60- 99 Probable left atrial enlargement...P >50mS, <-0.10mV V1
[2024-10-15] MEDS: Acetaminophen 325 MG TAB 650 MG PO (12:33)
[2024-10-15] MEDS: Albuterol HFA 8 GM 60 PUFF INH IH (12:33)
[2024-10-15] MEDS: Inhaler, Assist Device 1 EACH MC (12:34)
[2024-10-15 13:05] LABS: COVID-19 PCR Negative (Negative); Influenza B PCR Negative (Negative); RSV PCR Negative (Negative)
[2024-10-15 13:13] LABS: Source N
[2024-10-15 13:15] LABS: Influenza A PCR Positive (Negative)
[2024-10-15 13:26] VITALS: O2SAT 98
--- NOTE | 2024-10-15 13:35 | DI.RAD_ITS ---
Exam(s) XR CHEST 2V PA LATERAL EXAM: XR CHEST 2V PA LATERAL CLINICAL HISTORY: shortness of breath TECHNIQUE: 2D digital imaging was performed. Two views. COMPARISON: No exams were available for comparison FINDINGS: HEART: Normal size. Aorta: Not dilated. PULMONARY VASCULATURE: Normal. MEDIASTINUM: Unremarkable. LUNGS: Clear. PLEURAL SPACE: No pleural effusion or pneumothorax. BONE:Unremarkable for age. SOFT TISSUES: Unremarkable. IMPRESSION: No acute abnormality. DATA REPOSITORY: RADIATION DOSE DELIVERED:
[2024-10-15 13:53] VITALS: BP 126/75; PULSE 93; TEMP 37.1; O2SAT 99
--- NOTE | 2024-10-18 17:26 | ED.GENADUL_ITS ---
Discharge Plan Disposition Patient Disposition: Home Discharge Details Clinical Impression: Influenza A Primary Care Provider: Tere Chacon ED Provider: Roseline Maxwell Home Meds and New Rx's Prescriptions: New oseltamivir [Tamiflu] 75 mg capsule 75 mg PO BID 5 Days Qty: 10 0RF Continued gabapentin 300 mg capsule 300 mg PO QHS Qty: 90 3RF No Action benzonatate 100 mg capsule 100 - 200 mg PO TID PRN (Reason: cough) Qty: 60 0RF Rx Instructions: Take 1-2 capsules by mouth three times a day as needed for cough Discharge Instructions Instructions: Flu, Adult ED Additional Instructions: Take Motrin and Tylenol per package instructions for supportive care of your body aches and fever Take the Tamiflu as prescribed albuterol 2 puffs every 4-6 hours as needed for cough, wheeze, shortness of breath Referrals: Tere Chacon, LOG BUNCHER [Primary Care Provider] - 2 days Discharge Data Discharge Date/Time-TO BE ENTERED AT DEPARTURE: 10/15/24 14:02 HPI General Date/Time Provider Initiated Documentation: 10/15/24 12:04 . HPI Narrative: The patient is a 64-year-old female with a history of GERD who presents with cough, headache, and myalgias that started 3 days prior to arrival. She reports recent exposure to her sick granddaughter. She is experiencing, fever, or chills. She does not have any additional complaints at this time. Denies any shortness of breath Related Data Home Medications ?Medication ?Instructions ?Recorded ?Confirmed gabapentin 300 mg capsule 300 mg PO QHS #90 caps 07/07/24 10/15/24 oseltamivir 75 mg capsule (Tamiflu) 75 mg PO BID 5 days #10 caps 10/15/24 benzonatate 100 mg capsule 100 - 200 mg (1 - 2 x 100 mg) PO 10/18/24 TID PRN cough #60 caps Previous Rx's ?Medication ?Instructions ?Recorded gabapentin 300 mg capsule 300 mg PO QHS #90 caps 07/07/24 oseltamivir 75 mg capsule (Tamiflu) 75 mg PO BID 5 days #10 caps 10/15/24 benzonatate 100 mg capsule 100 - 200 mg (1 - 2 x 100 mg) PO 10/18/24 TID PRN cough #60 caps Allergies Allergy/AdvReac Type Severity Reaction Status Date / Time phenazopyridine Allergy Intermediate HIVES Verified 10/15/24 11:16 (Phenazopyridine) sulfamerazine (Sulfamerazine) Allergy Intermediate HIVES Verified 10/15/24 11:16 norfloxacin Allergy Unknown unknown Verified 10/15/24 11:16 peanut AdvReac rash Verified 10/15/24 11:16 vomiting pork derived (porcine) AdvReac rash Verified 10/15/24 11:16 General Stated Complaint: RespSymp SETH: 4 Exam Narrative Exam Narrative: General Appearance: Patient is alert and oriented, in no acute distress, but appears tired and cold. Vital signs: Within normal limits. HEENT: Within normal limits. Respiratory: Lungs are clear to auscultation. No increased work of breathing. Cardiovascular: Heart rate and rhythm are regular. Skin: No obvious rashes or lesions on the skin. Neurological: No meningismus in the neck. Other observations: None. Course Vital Signs Vital signs: Vital Signs Temperature 36.9 C 10/15/24 11:14 Pulse 100 H 10/15/24 11:14 Respiratory Rate 16 10/15/24 11:14 Blood Pressure 122/57 L 10/15/24 11:14 Pulse Oximetry 94 10/15/24 11:14 Temperature 37.1 C 10/15/24 13:53 Temperature Source Oral 10/15/24 13:53 Pulse 93 H 10/15/24 13:53 Respiratory Rate 16 10/15/24 11:14 Respiratory Effort Normal 10/15/24 13:26 Respiratory Depth Normal 10/15/24 13:26 Blood Pressure 126/75 10/15/24 13:53 Pulse Oximetry 99 10/15/24 13:53 Oxygen Delivery Method Room Air 10/15/24 13:26 Oxygen Flow Rate 0 10/15/24 11:14 Pain Level 0 10/15/24 13:26 Lab/Test Results Lab/Test Results: Laboratory Tests Range/Units 10/15/24 10/15/24 12:16 12:17 COVID-19 Source N Cancelled SARS-CoV-2 (PCR) (Negative) Negative Cancelled Influenza Type A (PCR) (Negative) Positive A Cancelled Influenza Type B (PCR) (Negative) Negative Cancelled RSV (PCR) (Negative) Negative Cancelled Medical Decision Making Laboratory Studies Positive for influenza A. Imaging Chest x-ray does not show evidence of acute abnormality. Initial Assessment: 64-year-old female with history of GERD presents with cough, headache, and myalgias for 3 days. Denies shortness of breath, chest pain, fever, or chills. ED Course: - Patient alert and oriented, no acute distress, appears tired and cold. - Lungs clear to auscultation, no meningismus, no rashes or lesions, no increased work of breathing, cardiac rate and rhythm regular. - Positive for influenza A. - Chest x-ray shows no acute abnormality (read by me). - Tamiflu initiated at patient's request. - Supportive care with ibuprofen, Tylenol, and hydration. - Encouraged to follow up with primary care physician. - Advised to return to ED if symptoms worsen. - At reassessment, no respiratory distress, well-appearing, stable for discharge home. Final Assessment: Patient tested positive for influenza A. Chest x-ray shows no acute abnormality. Initiated Tamiflu, supportive care with ibuprofen, Tylenol, and hydration. Stable for discharge home. Clinical Impression: - Influenza A Disposition: - Discharge - Follow-Up: Primary care physician [facility] Components Evaluation: - Number of Differential Diagnoses or Management Options: Influenza A - Amount and Complexity of Data Reviewed: Chest x-ray, influenza test - Risk of Complication and Morbidity or Mortality: Low risk based on current presentation and treatment plan. 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 Father Hypertension Sister No problems noted. Sister Type 2 diabetes mellitus Colon cancer Sister No problems noted. Brother Hypertension Brother Substance abuse Alcohol abuse Son Crohns disease Daughter Crohns disease Maternal Grandfather No problems noted. Maternal Grandmother Heart disease Paternal Grandfather No problems noted. Paternal Grandmother No problems noted. Social History (Updated 08/24/24 @ 10:11 by Justina Banks) Smoking/Tobacco Use Status: Never Second Hand Exposure: No Smoking risk assessment performed?: Yes Alcohol Intake: current Alcohol Intake frequency: holidays/special occasions only Alcohol type: wine Drug use: Never Substance use type: does not use Caregiver/Support person: No Household members: spouse Housing: house Communication Needs: None Pets and animals: No Sexually active: Yes Do you think of yourself as: straight/heterosexual Current gender identity: female What is your relationship status?: How often do you talk on the phone with friends or family?: once per week How often do you get together with friends or relatives?: once per week Do you belong to any clubs or organized social groups?: no Panel score (0-1 are the most socially isolated patients): 1 What type of physical activity do you participate in: walking Duration: 15-30 minutes/day Frequency: 3-4 times per week Connie/Episcopalian: Yarsani Special connie needs: No Seatbelt use: always Helmet use: Yes Helmet use: always Drive intox or ride w/intox 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
== END 2024-10-15 14:02 | disposition home or self-care (01) ==
PROVIDERS: Emergency Provider Physician Assistant; PCP Nurse Practitioner Family
DX: J10.1 Influenza due to other identified influenza virus with other respiratory manifestations (principal); E78.5 Hyperlipidemia, unspecified
CPT/HCPCS: 87637; 93005; 99285; 71046; 93010; 99284

== ENCOUNTER 2025-06-28 14:16 | Emergency (ER) | payer MEDICAID, SELFPAY ==
[2025-06-28 14:18] VITALS: BP 130/62; PULSE 81; RESP 18; TEMP 36.4; O2SAT 97
[2025-06-28 14:21] VITALS: BP 130/62; PULSE 81; RESP 18; TEMP 36.4; O2SAT 97
[2025-06-28 14:53] LABS: Glucose Negative (Negative)
--- NOTE | 2025-06-28 14:58 | ED.GENADUL_ITS ---
Discharge Plan Disposition Patient Disposition: Home Discharge Details Clinical Impression: Intertrigo Primary Care Provider: Tere Chacon ED Provider: Jonn Michelle Home Meds and New Rx's Prescriptions: New zinc oxide Ointment 1 applic topical QID PRNQty: 56.7 0RF No Action gabapentin 300 mg capsule 300 mg PO QHS Qty: 90 3RF benzonatate 100 mg capsule 100 - 200 mg PO TID PRN (Reason: cough) Qty: 60 0RF Rx Instructions: Take 1-2 capsules by mouth three times a day as needed for cough Discharge Instructions Instructions: Intertrigo Additional Instructions: Please follow-up with your primary care provider regarding your visit to the [facility] care department today. Be sure to discuss results of all test performed here today to include radiology, and laboratory testing as well as results for any pending cultures. Vaginal pathogen panel still pending, you will be contacted if you have any additional prescriptions at for further treatment. As discussed I suspect this issue is due to the irritation caused by the urine of the skin however there are other more chronic processes that may be to blame for your discomfort. Referrals been placed for you to the woman's health clinic; Should you have persistent symptoms. Should your symptoms worsen, or if you develop new concerning symptoms, please return immediately emergency department for further evaluation. HPI General Date/Time Provider Initiated Documentation: 06/28/25 14:19 . HPI Narrative: MDM/Narrative: 65-year-old female with vaginal burning, external, since last Friday. No rash, discharge, or systemic symptoms. Differential: STIs (gonorrhea, chlamydia, herpes), atrophic vaginitis, UTI. ED Course: Physical exam conducted; exam is consistent with intertrigo, no suspicious lesions to suggest herpes or other STIs. Urinalysis is negative, will follow-up vaginal pathogen panel as I suspect they will be negative, started patient on zinc oxide barrier cream instructed to follow-up with woman's health should she have continued or worsening issues. Patient will be discharged with a referral to women's health clinic for further evaluation. Follow-up: Referral to women's health clinic. This document was created with assistance from [employer]. The patient consented to its use. HPI: The patient is a 65-year-old female presenting with vaginal burning since June 22, 2025, which has progressed to persistent external burning. She denies the presence of rash, vaginal discharge, fever, chills, diabetes mellitus, or hypertension. The patient has been postmenopausal for 20 years and is sexually active. She has a history of urinary tract infection (UTI) 8 years ago, which did not present with similar symptoms. ROS: Negative besides as mentioned above Exam: Vital signs: Reviewed. General Appearance: Alert and oriented. No acute distress. HEENT: NCAT, EOMI, not icteric. External ears normal. No rhinorrhea. Moist mucous membranes. Neck: Supple, full range of motion, no observable masses, No meningeal sign. Respiratory: No Respiratory distress. No tachypnea. Cardiovascular: RRR, no edema. Gastrointestinal: Soft, nondistended, No rebound tenderness. 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 There is mild erythema without associated lesions induration or fluctuance in the perivaginal tissue, consistent with intertrigo. No discharge noted Back: No midline tenderness to palpation or palpable step-offs of the C/T/L spine. Skin: Warm and dry, no rash. Neurological: Normal Gait, Grossly intact. Psychiatric: Appropriate for situation. 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 Labs: 06/28/25 15:15 Vaginal Vaginitis Screen - Pending Laboratory Tests Range/Units 06/28/25 14:27 Urine Color (Yellow) Yellow Urine Clarity (Clear) Clear Urine pH (5-8) 6.5 Ur Specific [place] (1.005-1.025) 1.010 Urine Protein (Neg-Trace) mg/dL Negative Urine Ketones (Negative) mg/dL Negative Urine Blood (Negative) Negative Urine Nitrite (Negative) Negative Urine Bilirubin (Negative) Negative Urine Urobilinogen (Up to 0.2) mg/dL 0.2 Ur Leukocyte Esterase (Negative) Negative Urine Glucose (Negative) mg/dL Negative Related Data Home Medications ?Medication ?Instructions ?Recorded ?Confirmed gabapentin 300 mg capsule 300 mg PO QHS #90 caps 07/0706/28/25 benzonatate 100 mg capsule 100 - 200 mg (1 - 2 x 100 m g) PO 10/18/24 06/28/25 TID PRN cough #60 caps zinc oxide 1 applic topical QID PRN #56 .7 06/28/25 grams Previous Rx's ?Medication ?Instructions ?Recorded gabapentin 300 mg capsule 300 mg PO QHS #90 caps 07/07 benzonatate 100 mg capsule 100 - 200 mg (1 - 2 x 100 m g) PO 10/18/24 TID PRN cough #60 caps zinc oxide 1 applic topical QID PRN #56 .7 06/28/25 grams Allergies Allergy/AdvReac Type Severity Reaction Status Date / Time phenazopyridine Allergy Intermediate HIVES Verified 06/28/25 14:20 (Phenazopyridine) sulfamerazine (Sulfamerazine) Allergy Intermediate HIVES Verified 06/28/25 14:20 norfloxacin Allergy Unknown unknown Verified 06/28/25 14:20 peanut AdvReac rash Verified 06/28/25 14:20 vomiting pork derived (porcine) AdvReac rash Verified 06/28/25 14:20 General Stated Complaint: Urinary SETH: 3 Course Vital Signs Vital signs: Vital Signs Temperature 36.4 C L 06/28/25 14:18 Pulse 81 06/28/25 14:18 Respiratory Rate 18 06/28/25 14:18 Blood Pressure 130/62 06/28/25 14:18 Pulse Oximetry 97 06/28/25 14:18 Temperature 36.4 C L 06/28/25 14:21 Pulse 81 06/28/25 14:21 Respiratory Rate 18 06/28/25 14:21 Blood Pressure 130/62 06/28/25 14:21 Pulse Oximetry 97 06/28/25 14:21 Pain Level 0 06/28/25 14:32 Lab/Test Results Lab/Test Results: Laboratory Tests Range/Units 06/28/25 14:27 Urine Color (Yellow) Yellow Urine Clarity (Clear) Clear Urine pH (5-8) 6.5 Ur Specific [place] (1.005-1.025) 1.010 Urine Protein (Neg-Trace) mg/dL Negative Urine Ketones (Negative) mg/dL Negative Urine Blood (Negative) Negative Urine Nitrite (Negative) Negative Urine Bilirubin (Negative) Negative Urine Urobilinogen (Up to 0.2) mg/dL 0.2 Ur Leukocyte Esterase (Negative) Negative Urine Glucose (Negative) mg/dL Negative PFSH All Active Problems (Updated 06/28/25 @ 14:56 by Jonn Michelle MD) Intertrigo (Acute) Vertigo (Acute) Adenoma of right adrenal gland (Chronic) Hyperlipidemia (Chronic) Prediabetes (Chronic) Generalized anxiety disorder (Chronic) History of right breast cancer (Chronic ~2002) DCIS, high grade, grade 3 comedo type, ER/TX positive in summer 2002 s/p lumpectomy, radiation and 5yrs of tamoxifen at [facility] Chronic diarrhea (Chronic) Insomnia (Chronic) Medical History 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 -hb COVID-19 (~08/2020) 08/2020-nasal congestion, cough Cricopharyngeal spasm GERD (gastroesophageal reflux disease) Ductal carcinoma in situ (DCIS) of right breast (~2002) DCIS, high grade, grade 3 comedo type, ER/TX positive in summer 2002 s/p lumpectomy, radiation and 5yrs of tamoxifen at [facility] Surgical History History of colonoscopy (~08/2021) S/P lumpectomy, right breast (~2002) S/P cataract surgery (~2012) Hx of section (~1980) S/P abdominoplasty S/P nasal septoplasty (05/11/14) S/P STACIE-BSO (total abdominal hysterectomy and bilateral salpingo-oophorectomy) (~1991) Family History Mother No problems noted. Father Hypertension Sister No problems noted. Sister Type 2 diabetes mellitus Colon cancer Sister No problems noted. Brother Hypertension Brother Substance abuse Alcohol abuse Son Crohns disease Daughter Crohns disease Maternal Grandfather No problems noted. Maternal Grandmother Heart disease Paternal Grandfather No problems noted. Paternal Grandmother No problems noted. Social History (Updated 08/24/24 @ 10:11 by Justina Banks) Smoking/Tobacco Use Status: Never Second Hand Exposure: No Smoking risk assessment performed?: Yes Alcohol Intake: never Drug use: Never Substance use type: does not use Caregiver/Support person: No Household members: spouse Housing: house Communication Needs: None Pets and animals: No Sexually active: Yes Do you think of yourself as: straight/heterosexual Current gender identity: female What is your relationship status?: How often do you talk on the phone with friends or family?: once per week How often do you get together with friends or relatives?: once per week Do you belong to any clubs or organized social groups?: no Panel score (0-1 are the most socially isolated patients): 1 What type of physical activity do you participate in: walking Duration: 15-30 minutes/day Frequency: 3-4 times per week Connie/Mormon: Confucianist Special connie needs: No Seatbelt use: always Helmet use: Yes Helmet use: always 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
[2025-06-28] MEDS: Zinc Oxide 40% Paste 56 GM TUBE TP (15:10)
[2025-06-28] MEDS: Acetaminophen 500 MG TAB 1000 MG PO (15:12)
[2025-06-28] MEDS: Ibuprofen 600 MG TAB PO (15:12)
== END 2025-06-28 15:13 | disposition home or self-care (01) ==
LOC: ER 15:16
PROVIDERS: Emergency Provider General Practice; PCP Nurse Practitioner Family
DX: L30.4 Erythema intertrigo (principal)
CPT/HCPCS: 99283 ×2; 81003; 87480; 87510; 87660

== ENCOUNTER → 2025-07-25 02:00 | Outpatient (CLI) | payer MEDICAID, SELFPAY ==
--- NOTE | 2025-07-25 07:15 | DI.US_ITS ---
Exam(s) US SOFT TISS BUTTOCK/PERINEUM EXAM: US SOFT TISS BUTTOCK/PERINEUM CLINICAL HISTORY: Left labial mass,n90.89. TECHNIQUE: Ultrasound was performed using standard protocol. COMPARISON: CT CT ABDOMEN PELVIS W from 11/04/[address] ABDOMEN WO/W from 07/05/2024 FINDINGS: Sonographic assessment utilizing grayscale and color Doppler imaging was performed and targeted to the area of clinical concern. No cyst, mass or edema is identified. IMPRESSION: No abnormalities are identified in the labia ultrasonographically. DATA REPOSITORY:
== END ==
LOC: DI 02:00
PROVIDERS: PCP Nurse Practitioner Family; Visit Provider Obstetrics & Gynecology
DX: N90.89 Other specified noninflammatory disorders of vulva and perineum (principal)
CPT/HCPCS: 76857

== ENCOUNTER 2025-08-25 14:12 | Outpatient (CLI) | payer MEDICAID, SELFPAY ==
[2025-08-25 17:04] LABS: TSH (W/Ref FT4) 1.36 uIU/mL (0.55-4.78)
[2025-08-25 17:09] LABS: ALT 28 U/L (10-49); AST 22 U/L (<34); Albumin 4.6 g/dL (3.2-5.0); Alkaline Phosphatase 119 U/L (46-116); Anion Gap 11.5 mmol/L (3-11); BUN 18 mg/dL (9-23); Bilirubin, Total 0.3 mg/dL (0.2-1.2); CO2 25.5 mmol/L (20.0-31.0); Calcium 9.6 mg/dL (8.3-10.6); Chloride 106 mmol/L (98-107); Cholesterol 261 mg/dL (<200); Glucose 112 mg/dL (74-106); HDL Cholesterol 62 mg/dL (>or=50); Potassium 3.9 mmol/L (3.5-5.1); Sodium 143 mmol/L (136-145); Total Protein 7.5 g/dL (5.7-8.2)
[2025-08-25 17:39] LABS: Abs Immature Grans 0.04 10^3/uL (0.0-0.06); HCT 42.9 % (36.0-46.0); HGB 14.3 g/dL (11.2-15.7); Immature Grans % 0.4 %; MCH 28.9 pg (27.0-33.0); MCHC 33.3 % (32.0-36.0); MCV 87 fL (80-95); MPV 10.7 fL (8.0-11.0); Platelet Count 270 10^3/uL (130-400); RBC 4.94 10^6/uL (3.93-5.22); RDW 12.3 % (11.7-14.6); RDW-SD 39.2 fL; WBC 9.16 10^3/uL (4.4-10.8)
[2025-08-25 17:59] LABS: Hemoglobin A1C 5.9 % (<5.7)
[2025-08-26 09:48] LABS: HIV-1/2 Ag & Ab Screen Negative (Negative)
[2025-08-26 09:51] LABS: Hepatitis C Ab w Rflx HCV PCR Negative (Negative)
[2025-08-26 09:53] LABS: HBs Antibody, Quant <3.1 mIU/mL (See Note); Hepatitis B Surface Antigen Negative (Negative)
[2025-08-26 12:18] LABS: Syphilis Serology (RPR) Negative (Negative)
== END 2025-08-25 14:13 | disposition home or self-care (01) ==
LOC: LOS 14:12
PROVIDERS: PCP Nurse Practitioner Family; Visit Provider Nurse Practitioner Family
DX: Z11.59 Encounter for screening for other viral diseases (principal); Z00.00 Encounter for general adult medical examination without abnormal findings; R73.03 Prediabetes; E78.5 Hyperlipidemia, unspecified; Z11.4 Encounter for screening for human immunodeficiency virus [HIV]
CPT/HCPCS: 36415; 80053; 80061; 86704; 86706; 86803; 87340; 87389; 83036; 84443; 85025; 86592